=== PATIENT | male | born 1935 | race Caucasian/White ===

== ENCOUNTER 2017-04-09 16:47 | Inpatient (IN) | payer OTHER, MEDICARE ==
[~2017-04-09] VITALS: Ht 160 cm; Wt 77.1 kg
[2017-04-09 16:47] VITALS: BP_SYST 125
[~2017-04-09 16:47] MED LIST: CALC667T5 PO; HUM10VIA3 SUBCUT; NEPH PO; VITD2000 PO
--- NOTE | 2017-04-09 16:47 | NUR ---
Placed in room 01. Placed on hydrotherapist, blood pressure machine and pulse oximeter. To gown for exam. Side rails up. Report given to THOMAS Moody.
--- NOTE | 2017-04-09 16:47 | NUR ---
Dr. Hayes at bedside for evaluation
--- NOTE | 2017-04-09 16:47 | NUR ---
Pt was brought in by ALS, complains of tachycardia today. Per EMS, patient was at dialysis and staff at dialysis center noticed heart rate was increased. EMS, reports staff at dialysis center gave 400 mL of NS and heart rate dropped to 70's, but then increased to 160's. Pt denies chest pain, N/V, or dizziness. Per facility, "this is normal for him, but today we were unable to keep it low." No other injuries/complaints per patient or noted.
--- NOTE | 2017-04-09 16:52 | NUR ---
Juli rojas in ED - 04/09/17 at 1725 by [email or web address] WILLIAM Hayes at bedside examining patient.
[2017-04-09] MEDS ORDERED: NACL 0.9% 1,000 ML IV ONE (17:00)
[2017-04-09] MEDS ORDERED: D5W IV ONE (17:00)
[2017-04-09] MEDS ORDERED: AMIODARONE HCL IV ONE (17:00)
[2017-04-09] MEDS ORDERED: SEN30 PO (17:08)
[2017-04-09] MEDS ORDERED: HYDR-4100 PO (17:08)
[2017-04-09] MEDS ORDERED: AMIODARONE HCL 150 MG/3ML VIAL ONE (17:11)
[2017-04-09 17:23] LABS: BASOPHILS % (AUTO) 0.5 % (0.0-2.0); EOSINOPHILS % (AUTO) 1.1 % (0.0-4.0); HEMATOCRIT 29.6 % (36-54); LYMPHOCYTES % (AUTO) 21.6 % (20.5-51.5); MEAN CORPUSCULAR HEMOGLOBIN 35 pg (27-31); MEAN CORPUSCULAR HGB CONC 34 % (32-36); MEAN CORPUSCULAR VOLUME 103 fL (79.0-98.0); MONOCYTES % (AUTO) 8.6 % (1.7-9.3); NEUTROPHILS # (AUTO) 4.6 K/uL (1.8-7.7); NEUTROPHILS % (AUTO) 68.2 % (40.0-70.0); PLATELET COUNT (AUTO) 292 K/uL (130-430); RED BLOOD CELL COUNT(AUTO) 2.87 MIL/uL (4.2-6.2); RED CELL DISTRIBUTION WIDTH 14.8 % (9.0-15.0); WHITE BLOOD COUNT (AUTO) 6.8 K/uL (4.8-10.8)
[2017-04-09 17:24] LABS: ANION GAP 6 (5-15); CALCIUM 9.8 mg/dL (8.4-11.0); CHLORIDE 102 mmol/L (98-107); CREATININE 2.98 mg/dL (0.55-1.30); EOSINOPHILS # (AUTO) 0.1 K/uL (0.0-0.4); GLUCOSE 180 mg/dL (70-99); LYMPHOCYTES # (AUTO) 1.5 K/uL (1.0-5.5); MONOCYTES # (AUTO) 0.6 K/uL (0.0-1.0); POTASSIUM 3.7 mmol/L (3.5-5.1); SODIUM SERUM 140 mmol/L (136-145); UREA NITROGEN, BLOOD 16 mg/dL (8-21)
[2017-04-09 17:26] LABS: INR 1.1 (0.80-1.20)
[2017-04-09 17:30] LABS: ALANINE AMINOTRANSFERASE 29 U/L (12-78); ALBUMIN 3.1 g/dL (3.4-4.8); ASPARTATE AMINOTRANSFERASE 26 U/L (10-37); TOTAL BILIRUBIN 0.4 mg/dL (0.0-1.0)
[2017-04-09] MEDS ORDERED: DILTIAZEM HCL 25 MG/5 ML VIAL IVP ONE (17:30)
--- NOTE | 2017-04-09 17:39 | NUR ---
Medications were given, pt tolerated well. No adverse reaction, will continue to monitor.
--- NOTE | 2017-04-09 17:45 | NUR ---
Medication was given, heart rate decreased to 87. Pt vital signs are stable, no noted acute distress. Will continue to monitor.
--- NOTE | 2017-04-09 18:33 | NUR ---
Transfer to Telemetry via ACLS protocol. Licensed nurse present. IV present no signs or symptoms of infiltration.
--- NOTE | 2017-04-09 18:33 | NUR ---
Patient will be admitted to care of Dr. Ugarte. Admitted to Telemetry unit. Will go to room 120 A. Belongings list completed. Summary report printed. Report will be given at bedside.
--- NOTE | 2017-04-09 18:38 | NUR ---
ADMISSION NOTE Received patient from ER via jorge alberto, received report from BRODERICK GUZMAN. Patient admitted with diagnosis of SVT. Patient oriented to hospital routine, call light, toileting and safety-patient verbalized understanding. Addendum: 04/09/17 at 1855 by Rafaela Calix RN Alert/oriented x4 denies any chest pain no palpitation , telemetry NSR at 82/min , patient had dinner in ER as verbalized , call light within reach , will endorsed to material handler 2nd shift.
[2017-04-09 18:52] VITALS: BP_SYST 140
--- NOTE | 2017-04-09 19:04 | NUR ---
CONSULTATION CALLED REASON FOR CONSULTATION: SVT WAS CONSULT CALLED: Yes PERSON WHO WAS NOTIFIED: Constanza CONSULTING PHYSICIAN: Dr Chan GRAPHITE GRINDER SPECIALTY: assistant head cashier PHONE NUMBER: ORDERING PHYSICIAN: Dr Ugarte
--- NOTE | 2017-04-09 19:56 | NUR ---
CONSULTATION CALLED REASON FOR CONSULTATION: SVT WAS CONSULT CALLED? Yes PERSON WHO WAS NOTIFIED: Felicia CONSULTING PHYSICIAN: Dr Grullon; Isabel Jara is on-call INSPECTOR HANDBAG FRAMES SPECIALTY: Nephrology INSPECTOR HANDBAG FRAMES PHONE NUMBER: ORDERING PHYSICIAN: Dr Ugarte
--- NOTE | 2017-04-09 20:00 | NUR ---
Opening notes Patient in bed resting. AAOx3 and able to make needs known with clear speech patterns. IV noted to right AC with 20gauge cath. Patient noted with skin tear to right elbow. Skin discoloration noted to both forearms. Denies SOB, chest Pain or distress at this time. Bed in lowest position and call light with patient. Addendum: 04/09/17 at 2108 by Casie Wang RN Bed alarm on.
[2017-04-09] MEDS ORDERED: ACETAMINOPHEN 325 MG TABLET PO PRN (20:15)
[2017-04-09] MEDS ORDERED: ONDANSETRON HCL 4 MG/2 ML VIAL IVP PRN (20:15)
[2017-04-09] MEDS ORDERED: MORPHINE 2 MG/ML INJ. SYRINGE IVP PRN ×2 (20:15)
[2017-04-09] MEDS ORDERED: DEXTROSE 50% JECT 50 ML DISP.SYRIN IVP PRN (20:15)
[2017-04-09] MEDS ORDERED: ZOLPIDEM TARTRATE 5 MG TABLET PO PRN (20:15)
[2017-04-09] MEDS ORDERED: DOCUSATE SODIUM 100 MG CAPSULE PO PRN (20:15)
[2017-04-09] MEDS ORDERED: MUPIROCIN 2% TOPICAL OINTMENT 22 GM NS PRN (20:15)
[2017-04-09] MEDS ORDERED: LORazepam 2 MG/ML VIAL IVP PRN (20:15)
[2017-04-09] MEDS ORDERED: POTASSIUM CHLORIDE 20 MEQ TAB.PRT.SR PO PRN (20:15)
[2017-04-09] MEDS ORDERED: HYDROcodone/ACETAMIN 10-325 MG TAB PO PRN (20:15)
[2017-04-09] MEDS ORDERED: MAGNESIUM SULFATE 50 ML IV PRN (20:15)
[2017-04-09] MEDS: CALCIUM ACETATE 667 MG CAP PO SCH (22:05)
[2017-04-09] MEDS: HEPARIN SODIUM,PORCINE 5000 UNITS/ML VIAL SUBCUT SCH (22:07)
[2017-04-09] MEDS: INSULIN ASPART 100 UNITS/ML, 10 ML VIAL (NovoLOG) SUBCUT PRN (22:14)
--- NOTE | 2017-04-09 22:30 | NUR ---
Medication Patient in bed resting comfortably. No SOB or acute distress noted at this time. Administered medications as ordered and patient tolerated well. Bed in lowest position with bed alarm on and call light with patient. All needs met at this time.
--- NOTE | 2017-04-10 01:30 | NUR ---
Rounds Patient sleeping in bed with no acute distress noted at this time. No SOB or facial grimacing noted. Bed in lowest position and call light with patient.
[2017-04-10 04:00] VITALS: BP_SYST 157
--- NOTE | 2017-04-10 04:40 | NUR ---
Rounds Patient awake and wanting to use the restroom. Assisted patient to dangle legs then patient walked to restroom with unstable gait. Educated patient to use the call light when needing to get up or any other assistance. Patient verbalized understanding. . Bed in lowest position with bed alarm on and call light with patient.
[2017-04-10 06:05] LABS: ANION GAP 4 (5-15); CALCIUM 9.5 mg/dL (8.4-11.0); CHLORIDE 105 mmol/L (98-107); GLUCOSE 102 mg/dL (70-99); POTASSIUM 4.1 mmol/L (3.5-5.1); SODIUM SERUM 140 mmol/L (136-145); UREA NITROGEN, BLOOD 22 mg/dL (8-21)
[2017-04-10 06:08] LABS: BASOPHILS % (AUTO) 0.5 % (0.0-2.0); EOSINOPHILS # (AUTO) 0.1 K/uL (0.0-0.4); EOSINOPHILS % (AUTO) 1.5 % (0.0-4.0); HEMATOCRIT 26.4 % (36-54); HEMOGLOBIN 8.8 g/dL (14.0-18.0); LYMPHOCYTES # (AUTO) 1.2 K/uL (1.0-5.5); LYMPHOCYTES % (AUTO) 18.4 % (20.5-51.5); MEAN CORPUSCULAR HEMOGLOBIN 35 pg (27-31); MEAN CORPUSCULAR HGB CONC 33 % (32-36); MEAN CORPUSCULAR VOLUME 104 fL (79.0-98.0); MONOCYTES # (AUTO) 0.6 K/uL (0.0-1.0); MONOCYTES % (AUTO) 9.3 % (1.7-9.3); NEUTROPHILS # (AUTO) 4.4 K/uL (1.8-7.7); NEUTROPHILS % (AUTO) 70.3 % (40.0-70.0); PLATELET COUNT (AUTO) 240 K/uL (130-430); RED BLOOD CELL COUNT(AUTO) 2.53 MIL/uL (4.2-6.2); RED CELL DISTRIBUTION WIDTH 15.1 % (9.0-15.0); WHITE BLOOD COUNT (AUTO) 6.3 K/uL (4.8-10.8)
[2017-04-10] MEDS: CALCIUM ACETATE 667 MG CAP PO SCH ×3 (06:33→21:31)
--- NOTE | 2017-04-10 06:40 | NUR ---
Blood sugar and closing note Patient in bed resting with no acute distress or SOB noted at this time. Blood sugar was 103 with no coverage needed. Patient tolerated morning medication well. Bed in lowest position and call light with patient. Hourly rounds done throughout the shift and all needs met. Will endorse to day shift patient's plan of care.
--- NOTE | 2017-04-10 08:01 | NUR ---
OPENING NOTE RECEIVED REPORT FROM GROUND HAND RN. PATIENT RECEIVED ASLEEP IN BED. NO S/S OF DISTRESS OR SOB NOTED AT THIS TIME. IV TO RIGHT AC INTACT WITH NO REDNESS OR SIGNS OF INFILTRATION. BED IN LOWEST POSITION, BED ALARM ON, CALL LIGHT IN REACH. WILL CONTINUE TO MONITOR.
[2017-04-10 08:30] VITALS: BP_SYST 146
[2017-04-10] MEDS: CINACALCET HCL 30 MG TABLET PO SCH (09:50)
[2017-04-10] MEDS: HEPARIN SODIUM,PORCINE 5000 UNITS/ML VIAL SUBCUT SCH ×2 (09:52→21:35)
[2017-04-10 11:31] VITALS: BP_SYST 137
--- NOTE | 2017-04-10 13:20 | NUR ---
ROUNDS PATIENT RESTING IN BED IN STABLE CONDITION. NO S/S OF DISTRESS OR SOB NOTED AT THIS TIME. 20G TO RIGHT AC INTACT WITH NO S/S OF INFILTRATION OR INFECTION. SALINE LOCK. BED IN LOWEST POSITION, CALL LIGHT IN REACH, EDUCATED PATIENT TO CALL FOR HELP, BED ALARM ON. WILL CONTINUE TO MONITOR.
[2017-04-10] MEDS ORDERED: METOPROLOL SUCCINATE 25 MG TAB.SR.24H (TOPROL XL) PO ONE (14:30)
[2017-04-10 16:23] VITALS: BP_SYST 155
[2017-04-10] MEDS: INSULIN ASPART 100 UNITS/ML, 10 ML VIAL (NovoLOG) SUBCUT PRN (18:01)
--- NOTE | 2017-04-10 19:19 | NUR ---
CLOSING NOTE PATIENT RESTING IN BED IN STABLE POSITION. NO S/S OF DISTRESS OR SOB NOTED. 20G IV TO RIGHT AC INTACT, SALINE LOCK. BED ALARM ON, BED IN LOWEST POSITION, CALL LIGHT IN REACH. WILL ENDORSE TO ASPHALT PLANT WORKER
[2017-04-10 20:00] VITALS: BP_SYST 155
--- NOTE | 2017-04-10 20:00 | NUR ---
Opening notes Patient in bed resting. No acute distress or SOB noted at this time. Vital signs within normal limits. Patient AAOx3 and able to make needs known. Denies pain at this time. Bed in low position with bed alarm on and call light with patient.
--- NOTE | 2017-04-10 21:40 | NUR ---
Blood sugar Patient's blood sugar is 137 with no coverage needed. Skin warm and dry to touch with no signs of hyperglycemia noted. Patient denies pain at this time. No SOB or acute distress noted. Bed in lowest position with bed alarm on and call light with patient.
--- NOTE | 2017-04-10 23:30 | NUR ---
Rounds Patient in bed sleeping with no acute distress or SOB noted. No facial grimacing noted. Bed in low position with bed alarm on and call light with patient.
[2017-04-11 00:05] VITALS: BP_SYST 117
--- NOTE | 2017-04-11 01:30 | NUR ---
Rounds Patient in bed sleeping with no SOB or acute distress noted at this time. No facial grimacing noted. Bed in low position with bed alarm on and call light with patient.
--- NOTE | 2017-04-11 03:37 | NUR ---
Patient got out of bed Patient got out of bed by himself to use the bedside commode. Bed alarm was on so assistance was given. Patient back in bed in low position with bed alarm on and call light with patient. No acute distress noted at this time.
[2017-04-11 05:00] VITALS: BP_SYST 157
[2017-04-11 05:49] LABS: BASOPHILS % (AUTO) 0.4 % (0.0-2.0); EOSINOPHILS # (AUTO) 0.1 K/uL (0.0-0.4); HEMATOCRIT 27.9 % (36-54); HEMOGLOBIN 8.8 g/dL (14.0-18.0); LYMPHOCYTES # (AUTO) 1.2 K/uL (1.0-5.5); LYMPHOCYTES % (AUTO) 16.3 % (20.5-51.5); MEAN CORPUSCULAR HEMOGLOBIN 33 pg (27-31); MEAN CORPUSCULAR HGB CONC 32 % (32-36); MEAN CORPUSCULAR VOLUME 105 fL (79.0-98.0); MONOCYTES # (AUTO) 0.6 K/uL (0.0-1.0); MONOCYTES % (AUTO) 8.1 % (1.7-9.3); NEUTROPHILS # (AUTO) 5.4 K/uL (1.8-7.7); NEUTROPHILS % (AUTO) 74.2 % (40.0-70.0); PLATELET COUNT (AUTO) 257 K/uL (130-430); RED BLOOD CELL COUNT(AUTO) 2.67 MIL/uL (4.2-6.2); WHITE BLOOD COUNT (AUTO) 7.3 K/uL (4.8-10.8)
[2017-04-11 06:00] LABS: ANION GAP 4 (5-15); CALCIUM 9.6 mg/dL (8.4-11.0); CHLORIDE 104 mmol/L (98-107); CREATININE 6.03 mg/dL (0.55-1.30); GLUCOSE 141 mg/dL (70-99); POTASSIUM 4.4 mmol/L (3.5-5.1); SODIUM SERUM 138 mmol/L (136-145); UREA NITROGEN, BLOOD 31 mg/dL (8-21)
[2017-04-11] MEDS: CALCIUM ACETATE 667 MG CAP PO SCH ×3 (06:31→21:13)
--- NOTE | 2017-04-11 06:45 | NUR ---
Blood sugar and closing notes Patients blood sugar is 116 with no coverage needed. Patient in bed resting with no signs of hypo/hyper glycemia noted. No actue distress or SOB noted. IV to right AC patent and flushed. Will endorse to day shift patient's plan of care.
--- NOTE | 2017-04-11 07:45 | NUR ---
OPENING NOTE RECEIVED REPORT FROM LUMBER SALVAGER RN. PATIENT RECEIVED RESTING IN BED IN STABLE CONDITION. NO S/S OF DISTRESS OR SOB NOTED AT THIS TIME. IV TO RIGHT AC INTACT WITH NO S/S OF INFILTRATION OR INFECTION. PATIENT DENIES PAIN OR DISCOMFORT AT THIS TIME. BED IN LOWEST POSITION, CALL LIGHT IN REACH, BED ALARM ON. WILL CONTINUE TO MONITOR.
[2017-04-11 08:44] VITALS: BP_SYST 165
[2017-04-11] MEDS ORDERED: EPOETIN ALFA 4,000 UNITS/ML VIAL SUBCUT SCH (09:00)
[2017-04-11] MEDS: CINACALCET HCL 30 MG TABLET PO SCH (09:42)
[2017-04-11] MEDS: METOPROLOL SUCCINATE 25 MG TAB.SR.24H (TOPROL XL) PO SCH (09:43)
[2017-04-11] MEDS: HEPARIN SODIUM,PORCINE 5000 UNITS/ML VIAL SUBCUT SCH ×2 (09:49→21:18)
[2017-04-11 11:38] VITALS: BP_SYST 154
[2017-04-11] MEDS: INSULIN ASPART 100 UNITS/ML, 10 ML VIAL (NovoLOG) SUBCUT PRN ×2 (12:08→21:17)
--- NOTE | 2017-04-11 13:18 | NUR ---
04/11/17: RD Assessment Dietitian Recommendations: 1. Continue current diet as tolerated. 2. Encourage PO intakes prn. 3. Appreciate food preferences. Please see Nutrition Assessment for details. Breanne Alvarado RD, [facility]
[2017-04-11 15:01] VITALS: BP_SYST 149
--- NOTE | 2017-04-11 19:55 | NUR ---
INITIAL NOTES RECEIVED PATIENT ON BED AWAKE AND ALERT BREATHING EVEN AND UNLABORED MAINTAINED POSITION OF COMFORT, MAINTAINED SAFETY PRECAUTION, NO PAIN NOTED, VITALS STABLE. EXPLAINED THE PLAN OF CARE AND VERBALIZED UNDERSTANDING WILL CONTINUE TO MONITOR CALL LIGHT WITHIN REACH.
[2017-04-11 20:00] VITALS: BP_SYST 149
--- NOTE | 2017-04-11 20:12 | NUR ---
CLOSING NOTE PATIENT IN BED IN STABLE CONDITION. CURRENTLY ON PHONE WITH . NO S/S OF DISTRESS OR SOB NOTED AT THIS TIME. IV TO RIGHT AC INTACT, NO REDNESS OR INFILTRATION NOTED. REPORT GIVEN TO WILNER CIGARETTE AND FILTER CHIEF INSPECTOR RN. BED IN LOWEST POSITION, BED ALARM ON, CALL LIGHT IN REACH.
--- NOTE | 2017-04-11 22:48 | NUR ---
RN ROUNDS PATIENT ON BED AWAKE AND ALERT, HELPED THE PATIENT TO PREPARE FOR BED, MAINTAINED SAFETY PRECAUTION, MAINTAINED POSITION OF COMFORT NO PAIN NOTED. WILL CONTINUE TO MONITOR CALL LIGHT WITHIN REACH.
--- NOTE | 2017-04-12 00:12 | NUR ---
RN ROUNDS PATIENT ON BED SLEEPING AND RESTING NO PAIN NOTED, BREATHING EVEN AND UNLABORED, MAINTAINED SAFETY, POSITION OF COMFORT. CALL LIGHT WITHIN REACH
[2017-04-12 00:13] VITALS: BP_SYST 142
--- NOTE | 2017-04-12 02:33 | NUR ---
RN ROUNDS PATIENT ON BED SLEEPING AND RESTING BREATHING EVEN AND UNLABORED MAINTAINED SAFETY PRECAUTION CALL LIGHT WITHIN REACH.
--- NOTE | 2017-04-12 04:02 | NUR ---
RN ROUNDS PATIENT ON BED SLEEPING AND RESTING BREATHING EVEN AD UNLABORED. MAINTAINED SAFETY PRECAUTION. CALL LIGHT WITHIN REACH.
--- NOTE | 2017-04-12 06:00 | NUR ---
Closing notes Received report from THOMAS Jose at bedside for continuity of care. Pt asleep, easily arousable. No s/s of distress noted. Blood sugar checked 111. Pt denies any pain at this time. R. arm/elbow skin tear dressings changed. Pt tolerated well. IV saline lock R. AC 22G clear, patent. Call light within reach. To endorse to am nurse.
[2017-04-12] MEDS: CALCIUM ACETATE 667 MG CAP PO SCH (06:06)
[2017-04-12 06:50] LABS: BASOPHILS % (AUTO) 0.5 % (0.0-2.0); EOSINOPHILS # (AUTO) 0.1 K/uL (0.0-0.4); EOSINOPHILS % (AUTO) 1.2 % (0.0-4.0); HEMATOCRIT 26.9 % (36-54); HEMOGLOBIN 8.9 g/dL (14.0-18.0); LYMPHOCYTES # (AUTO) 1.2 K/uL (1.0-5.5); LYMPHOCYTES % (AUTO) 19.9 % (20.5-51.5); MEAN CORPUSCULAR HEMOGLOBIN 35 pg (27-31); MEAN CORPUSCULAR HGB CONC 33 % (32-36); MEAN CORPUSCULAR VOLUME 105 fL (79.0-98.0); MONOCYTES # (AUTO) 0.5 K/uL (0.0-1.0); MONOCYTES % (AUTO) 8.7 % (1.7-9.3); NEUTROPHILS # (AUTO) 4.1 K/uL (1.8-7.7); NEUTROPHILS % (AUTO) 69.7 % (40.0-70.0); PLATELET COUNT (AUTO) 206 K/uL (130-430); RED BLOOD CELL COUNT(AUTO) 2.57 MIL/uL (4.2-6.2); RED CELL DISTRIBUTION WIDTH 14.6 % (9.0-15.0); WHITE BLOOD COUNT (AUTO) 5.9 K/uL (4.8-10.8)
[2017-04-12 06:51] LABS: ANION GAP 7 (5-15); CALCIUM 9.3 mg/dL (8.4-11.0); CHLORIDE 101 mmol/L (98-107); CREATININE 7.59 mg/dL (0.55-1.30); GLUCOSE 110 mg/dL (70-99); POTASSIUM 4.3 mmol/L (3.5-5.1); SODIUM SERUM 134 mmol/L (136-145); UREA NITROGEN, BLOOD 45 mg/dL (8-21)
--- NOTE | 2017-04-12 07:40 | NUR ---
Initial Note Received report from the night nurse Ronna. Pt AOX4. No signs of distress noted at this time. Bed is at lowest position and call light within reach.
[2017-04-12 07:45] VITALS: BP_SYST 155
[2017-04-12] MEDS: CINACALCET HCL 30 MG TABLET PO SCH (08:36)
[2017-04-12] MEDS: METOPROLOL SUCCINATE 25 MG TAB.SR.24H (TOPROL XL) PO SCH (08:37)
[2017-04-12] MEDS: HEPARIN SODIUM,PORCINE 5000 UNITS/ML VIAL SUBCUT SCH (08:40)
--- NOTE | 2017-04-12 09:55 | NUR ---
DISCHARGE PLANNING DC order back to SNF. Faxed SNF referral to [phone]. will follow up on bed assignment. Called [facility] [phone] spoke with Sridevi confirmed patient chair time scheduled 12noon today. Called [facility] [phone] transport not available today. Called [facility] [phone] spoke with Nita bernstein BLS transport poultry picker 11:30am to [facility]. [facility] on will call from [facility] to [facility]. Transportation packet in nurses station. THOMAS Brantley made aware. Patient assigned to room 207A RN to report [phone]. Breanne was made aware patient scheduled for dialysis today at 12noon and ambulance on will call to transport patient from [facility] to [facility].
[2017-04-12 10:43] VITALS: BP_SYST 155
[2017-04-12] MEDS ORDERED: METO25TA3 PO (11:12)
--- NOTE | 2017-04-12 11:30 | NUR ---
Discharge Note Pt has been discharged to SNF as ordered by Dr. Bhatia. Pt is in stable condition at the time of discharge. No signs of distress noted. Transitional care documentation and document pouch given to supervisor alum plant of [facility] ambulance unit 317. IV line removed pressure and gauze applied. No signs of bleeding noted. Pt will be taken to [facility] for dialysis treatment, and after treatment the pt will be taken to [facility] ([facility]).
[2017-04-12 12:27] VITALS: BP_SYST 156
[2017-04-13] MEDS ORDERED: EPOETIN ALFA 4,000 UNITS/ML VIAL SUBCUT SCH (18:00)
== END 2017-04-12 11:50 | DRG 308 ==
LOC: SED 16:47 → STU 18:19
PROVIDERS: ADMIT General Practice; ATTEND General Practice
PROC: 5A1D70Z Performance of Urinary Filtration, Intermittent, Less than 6 Hours Per Day (ICD-10-PCS; principal; 2017-04-11)
DX: I47.1 Supraventricular tachycardia (principal); N17.0 Acute kidney failure with tubular necrosis; E87.2 Acidosis; N18.6 End stage renal disease; I12.0 Hypertensive chronic kidney disease with stage 5 chronic kidney disease or end stage renal disease; N25.81 Secondary hyperparathyroidism of renal origin; E11.22 Type 2 diabetes mellitus with diabetic chronic kidney disease; D63.8 Anemia in other chronic diseases classified elsewhere; I49.9 Cardiac arrhythmia, unspecified; Z99.2 Dependence on renal dialysis
CPT/HCPCS: 36415; 71045; 80048; 80053; 82962; 83605; 83735-TC; 84443-TC; 84484; 85025; 85610-TC; 85730-TC; 87040-TC; 87081; 93005; 93306; 96361; 96374; 96375; 99291; J0282; J1644; J1815; J3490; J7030; J7060

== ENCOUNTER 2017-04-21 14:41 | Emergency (ER) | payer OTHER, MEDICARE ==
[~2017-04-21] VITALS: Ht 160 cm; Wt 75.3 kg
[~2017-04-21 14:41] MED LIST changes: +HYDR-4100 PO; +METO25TA3 PO; +SEN30 PO
[2017-04-21 14:49] VITALS: BP_SYST 148
[2017-04-21 16:10] LABS: BASOPHILS % (AUTO) 0.6 % (0.0-2.0); EOSINOPHILS # (AUTO) 0.1 K/uL (0.0-0.4); EOSINOPHILS % (AUTO) 1.6 % (0.0-4.0); HEMATOCRIT 25.9 % (36-54); HEMOGLOBIN 8.6 g/dL (14.0-18.0); LYMPHOCYTES % (AUTO) 20.8 % (20.5-51.5); MEAN CORPUSCULAR HEMOGLOBIN 34 pg (27-31); MEAN CORPUSCULAR HGB CONC 33 % (32-36); MEAN CORPUSCULAR VOLUME 102 fL (79.0-98.0); MONOCYTES # (AUTO) 0.5 K/uL (0.0-1.0); MONOCYTES % (AUTO) 10.4 % (1.7-9.3); NEUTROPHILS # (AUTO) 3.4 K/uL (1.8-7.7); NEUTROPHILS % (AUTO) 66.6 % (40.0-70.0); PLATELET COUNT (AUTO) 197 K/uL (130-430); RED BLOOD CELL COUNT(AUTO) 2.53 MIL/uL (4.2-6.2); RED CELL DISTRIBUTION WIDTH 14.4 % (9.0-15.0)
[2017-04-21 16:21] LABS: ANION GAP 5 (5-15); CALCIUM 8.4 mg/dL (8.4-11.0); CHLORIDE 100 mmol/L (98-107); CREATININE 4.43 mg/dL (0.55-1.30); GLUCOSE 271 mg/dL (70-99); POTASSIUM 3.7 mmol/L (3.5-5.1); SODIUM SERUM 136 mmol/L (136-145); UREA NITROGEN, BLOOD 30 mg/dL (8-21)
[2017-04-21 16:25] LABS: ALANINE AMINOTRANSFERASE 35 U/L (12-78); ALBUMIN 2.7 g/dL (3.4-4.8); ASPARTATE AMINOTRANSFERASE 27 U/L (10-37); LIPASE 326 U/L (73-393); TOTAL BILIRUBIN 0.4 mg/dL (0.0-1.0)
[2017-04-21 19:15] VITALS: BP_SYST 154
== END 2017-04-21 19:15 | disposition home or self-care (01) ==
LOC: SED 14:41
DX: R00.2 Palpitations (principal); I12.0 Hypertensive chronic kidney disease with stage 5 chronic kidney disease or end stage renal disease; E11.22 Type 2 diabetes mellitus with diabetic chronic kidney disease; N18.6 End stage renal disease; Z99.2 Dependence on renal dialysis; Z79.899 Other long term (current) drug therapy
CPT/HCPCS: 36415; 71045; 80053; 83690-TC; 83880; 84484; 85025; 93005; 99285

== ENCOUNTER 2017-05-17 13:22 | Emergency (ER) | payer OTHER, MEDICARE ==
[~2017-05-17] VITALS: Ht 160 cm; Wt 75.7 kg
[2017-05-17 13:26] VITALS: BP_SYST 133
[2017-05-17] MEDS ORDERED: NS 500 ML IV ONE (13:45)
[2017-05-17] MEDS ORDERED: ASPIRIN 81 MG TAB.CHEW PO ONE (13:45)
[2017-05-17] MEDS ORDERED: ASPIRIN 81 MG TAB.CHEW ONE (14:12)
[2017-05-17 14:19] LABS: BASOPHILS % (AUTO) 0.7 % (0.0-2.0); EOSINOPHILS # (AUTO) 0.1 K/uL (0.0-0.4); EOSINOPHILS % (AUTO) 1.9 % (0.0-4.0); HEMOGLOBIN 10.9 g/dL (14.0-18.0); INR 1.1 (0.80-1.20); LYMPHOCYTES # (AUTO) 1.5 K/uL (1.0-5.5); LYMPHOCYTES % (AUTO) 24.3 % (20.5-51.5); MEAN CORPUSCULAR HEMOGLOBIN 34 pg (27-31); MEAN CORPUSCULAR HGB CONC 32 % (32-36); MEAN CORPUSCULAR VOLUME 106 fL (79.0-98.0); MONOCYTES # (AUTO) 0.5 K/uL (0.0-1.0); MONOCYTES % (AUTO) 8.7 % (1.7-9.3); NEUTROPHILS % (AUTO) 64.4 % (40.0-70.0); PLATELET COUNT (AUTO) 243 K/uL (130-430); PROTHROMBIN TIME 11.3 SECS (9.5-12.5); RED CELL DISTRIBUTION WIDTH 18.5 % (9.0-15.0); WHITE BLOOD COUNT (AUTO) 6.1 K/uL (4.8-10.8)
[2017-05-17 14:21] LABS: ANION GAP 9 (5-15); CALCIUM 8.7 mg/dL (8.4-11.0); CHLORIDE 98 mmol/L (98-107); CREATININE 5.96 mg/dL (0.55-1.30); GLUCOSE 194 mg/dL (70-99); SODIUM SERUM 136 mmol/L (136-145); UREA NITROGEN, BLOOD 34 mg/dL (8-21)
[2017-05-17 14:26] LABS: ALANINE AMINOTRANSFERASE 29 U/L (12-78); ALBUMIN 3.2 g/dL (3.4-4.8); ASPARTATE AMINOTRANSFERASE 28 U/L (10-37); TOTAL BILIRUBIN 0.5 mg/dL (0.0-1.0)
[2017-05-17] MEDS ORDERED: METOPROLOL TARTRATE 25 MG TABLET PO ONE (14:30)
[2017-05-17 16:45] VITALS: BP_SYST 132
== END 2017-05-17 16:45 | disposition home or self-care (01) ==
LOC: SED 13:22
DX: R00.0 Tachycardia, unspecified (principal); I10 Essential (primary) hypertension; E11.9 Type 2 diabetes mellitus without complications; Z99.2 Dependence on renal dialysis; Z79.4 Long term (current) use of insulin; Z85.51 Personal history of malignant neoplasm of bladder; Z79.899 Other long term (current) drug therapy
CPT/HCPCS: 36415; 71045; 80053; 82550; 83880; 84484; 85025; 85610; 85730; 93005; 96360; 99285; J7040

== ENCOUNTER 2018-04-28 10:19 | Inpatient (IN) | payer OTHER, MEDICARE ==
[~2018-04-28] VITALS: Ht 160 cm; Wt 76.7 kg
[2018-04-28 10:23] VITALS: BP_SYST 96
--- NOTE | 2018-04-28 10:29 | NUR ---
Placed in room 07 . Placed on cardiac rn, blood pressure machine and pulse oximeter. To gown for exam. Side rails up.
--- NOTE | 2018-04-28 10:44 | NUR ---
Medicated for low blood sugar per MD orders. at bedside.
[2018-04-28] MEDS ORDERED: DEXTROSE 50% JECT 50 ML DISP.SYRIN IVP ONE (10:45)
[2018-04-28] MEDS ORDERED: DEXTROSE 50% JECT 50 ML DISP.SYRIN ONE (10:48)
[2018-04-28] MEDS ORDERED: GLIP5TAB26 PO (10:50)
[2018-04-28] MEDS ORDERED: APIX2.5T PO (10:50)
[2018-04-28] MEDS ORDERED: TRAM-350 PO (10:50)
[2018-04-28] MEDS ORDERED: ASPI-1153 PO (10:50)
[2018-04-28] MEDS ORDERED: AMI200 PO (10:50)
[2018-04-28] MEDS ORDERED: LIP40 PO (10:50)
--- NOTE | 2018-04-28 10:51 | NUR ---
Phleb here for blood draw using 2 pt identifiers.
--- NOTE | 2018-04-28 10:57 | NUR ---
ASSISTED PT FROM [facility]IA W/C, BRINGS IN PT [facility] CALLED THEM AND INFORMED THEM TO COME TO ER BECAUSE HIS H/H WERE LOW. PT WITH MODERATE ASSIST TO BED, PALE LOOKING, SOB WITH MINIMAL EXERTION. BRUISES NOTED TO LEFT ANTERIOR CHEST WALL, RIGHT ARM, LEFT SHOULDER, PER , HE'S BEEN REFUSING TO USE WALKER AND HAS BEEN FALLING A LOT RECENTLY. PT AAOX4, DENIES ANY PAIN. RESP EVEN AND UNLABORED, ON RA @98%, DENIES ANY CP AT THIS TIME. SKIN W/D/I. IV SL INSERTED TO RT FS, PT HYPOGLYCEMIC, ER MD INFORMED. MEDICATED WITH 1 AMP ORDERED. PER , HE HAD BREAKFAST THIS AM. PT WITH AN EXTENSIVE MED HISTORY, HAD DIALYSIS YESTERDAY AND WENT WELL, SHUNT TO LEFT FA NOTED, +BRUIT/THRILL. SAFETY PRECUATIONS IN PLACE, WILL CONT TO MONITOR CLOSELY.
--- NOTE | 2018-04-28 11:00 | NUR ---
ER Dr. Ely at bedside examining patient.
--- NOTE | 2018-04-28 11:17 | NUR ---
NO ACUTE CHANGES IN CONDITION, PT WITH EYES CLOSED, EASILY AROUSABLE, RE CHECK BLOOD GLUCOSE 221MG/DL. DR PARIS INFORMED. WILL CONT TO MONITOR.
[2018-04-28 11:25] LABS: RED BLOOD CELL COUNT(AUTO) 1.88 MIL/uL (4.2-6.2); WHITE BLOOD COUNT (AUTO) 4.4 K/uL (4.8-10.8)
[2018-04-28 11:26] LABS: HEMATOCRIT 21.2 % (36-54); HEMOGLOBIN 6.7 g/dL (14.0-18.0)
[2018-04-28 11:27] LABS: BASOPHILS # (AUTO) 0.1 K/uL (0.0-0.2); BASOPHILS % (AUTO) 1.5 % (0.0-2.0); LYMPHOCYTES # (AUTO) 0.7 K/uL (1.0-5.5); LYMPHOCYTES % (AUTO) 16.1 % (20.5-51.5); MEAN CORPUSCULAR HEMOGLOBIN 36 pg (27-31); MEAN CORPUSCULAR HGB CONC 32 % (32-36); MEAN CORPUSCULAR VOLUME 113 fL (79.0-98.0); MONOCYTES # (AUTO) 0.5 K/uL (0.0-1.0); MONOCYTES % (AUTO) 11.4 % (1.7-9.3); NEUTROPHILS # (AUTO) 3.1 K/uL (1.8-7.7); PLATELET COUNT (AUTO) 172 K/uL (130-430); RED CELL DISTRIBUTION WIDTH 25.9 % (9.0-15.0)
[2018-04-28 11:32] LABS: ANION GAP 4 (5-15); CHLORIDE 101 mmol/L (98-107); CREATININE 4.44 mg/dL (0.55-1.30); GLUCOSE 256 mg/dL (70-99); POTASSIUM 5.6 mmol/L (3.5-5.1); SODIUM SERUM 135 mmol/L (136-145); UREA NITROGEN, BLOOD 51 mg/dL (8-21)
[2018-04-28 11:37] LABS: ALANINE AMINOTRANSFERASE 28 U/L (12-78); ALBUMIN 2.3 g/dL (3.4-4.8); ASPARTATE AMINOTRANSFERASE 37 U/L (10-37); TOTAL BILIRUBIN 0.8 mg/dL (0.0-1.0)
[2018-04-28 11:48] LABS: INR 1.5 (0.80-1.20); PROTHROMBIN TIME 14.9 SECS (9.5-12.5)
--- NOTE | 2018-04-28 12:20 | NUR ---
PT SITTING UP IN BED, EATING LUNCH, AT BEDSIDE. TOLERATING WEL. LORIITBEBO FOR ADMISSION BED.
[2018-04-28] MEDS ORDERED: SODIUM POLYSTYRENE SULFONATE 15 GM/60 ML UDBTL PO ONE (12:30)
[2018-04-28] MEDS ORDERED: SODIUM POLYSTYRENE SULFONATE 15 GM/60 ML UDBTL ONE ×2 (12:45→12:48)
--- NOTE | 2018-04-28 12:53 | NUR ---
Admission Note Received patient from ER with diagnosis of Severe Anemia, Hypoglycemia,ESRD. Initial Plan of Care discussed-patient verbalized his understanding. Oriented to room, call light, pain management and safety. Call light within reach.
--- NOTE | 2018-04-28 13:09 | NUR ---
CONSULTATION PAGED/CALLED Reason for Consultation: [] SEVERE ANEMIA, HYPOGLYCEMIA Person Who was Notified: [] CAIO Consulting Physician: [] DR Elizabeth GUILLAUME PSYCHOTHERAPIST COUNSELOR FOR DR Carlos KAM Numerical Analysis Group Manager Specialty: [] NEPHROLOGY Ordering Physician: [] DR BOWLING
[2018-04-28 13:30] VITALS: BP_SYST 125
--- NOTE | 2018-04-28 14:00 | NUR ---
Patient will be admitted to care of DR ROQUE. Admitted to unit. Will go to room . Belongings list completed. Summary report printed. Report will be given at bedside.
--- NOTE | 2018-04-28 16:25 | NUR ---
ROUNDS/SKIN Pt resting quietly in room with no s/s resp distress, no c/o pain or discomfort. Photos taken of pt's multiple bruises and small scabs-pt states he falls sometimes-"I don't always use the walker". Noted pt had on diaper brief-pt educated on the benfits of not using diapers for his skin-pt verbalized his understanding and still insisted on using his depends. Pt's wound to LFA cleansed with normal saline, hydrogel to wound bed, covered with foam dressing and secured in place with kerlex wrap. Pt tolerated well. Pt c/o feeling cold-given warm blanket. Needs met, Call light within reach.
--- NOTE | 2018-04-28 17:35 | NUR ---
BLOOD TRANSFUSION STARTED Consent signed per Dr. Live agreeing to administration of blood. Blood has been type and crossmatched. Blood sent from blood bank. Information on unit of blood checked against patient wristband at bedside by two nurses. All information matches. Patient or responsible green party informed of potential complications associated with blood transfusion. Informed of possible transfusion reaction symptoms. Aware of need to notify nurse at once of itching, shortness of breath, flushing, feeling of impending doom, or other symptoms not previously present. Vital signs taken within 5 minutes prior to initiation of transfusion, pt afebrile. RN remained with the patient for first 15 minutes of transfusion at which time vital signs were re-assessed and stable, pt afebrile. Call light within reach.
--- NOTE | 2018-04-28 17:49 | NUR ---
LOW BLOOD SUGAR Pt's Glucose 52 mg/dl, pt asymptomatic, pt sitting up up starting to eat his dinner. Pt given 4oz juice and his fruit. Will recheck blood sugar in 15 minutes.
--- NOTE | 2018-04-28 17:57 | NUR ---
MD INFORMED Dr. Live here and informed of low blood sugar, stated to keep fingersticks at Q 2hr, stated she will put sliding scale to start at 220 mg/dl.
[2018-04-28] MEDS ORDERED: D10W 1,000 ML IV SCH (18:00)
--- NOTE | 2018-04-28 19:20 | NUR ---
CLOSING NOTE Pt resting quietly in bed with no s/s resp distress, no c/o pain or discomfort. Blood transfusion infusing well to RFA at 100 ml/hr, no s/s adverse side effects to blood transfusion noted at this time. Endorsed to spring upholsterer RN. Needs met, call light within reach.
--- NOTE | 2018-04-28 19:36 | NUR ---
Opening notes Received report. Patient is resting comfortably in bed. No signs of distress noted. Breathing is even and unlabored. Blood transfusion currently running through IV. No signs of allergic reaction noted. No needs at this time. Call light with the patient. Safety precautions in place.
[2018-04-28 20:00] VITALS: BP_SYST 115
--- NOTE | 2018-04-28 20:45 | NUR ---
END BLOOD TRANSFUSION Patient tolerated well. No signs of allergic reaction noted. Vital signs T 97.4 P81 R18 BP 115/61 O2 sat 100%. Will initiate ordered fluids.
--- NOTE | 2018-04-28 20:59 | NUR ---
Consultation Paged Reason for Consultation: Persistent Hypoglycemia Person Who was Notified: Kolton Consulting Physician: Dr Mo Drum Printer Drum Printer Specialty: Endocrinology Ordering Physician: Dr Live
--- NOTE | 2018-04-28 21:30 | NUR ---
Bowel Movement Patient ambulated to bathroom using walker. Patient had a large amount of soft, brown stool. Hygiene care provided at this time. Patient wants to use diaper. Educated the patient benefits of not using a diaper to protect the skin. Patient verbalized understanding, but still wants to use diaper. Provided the patient with daniel crackers and apple juice per patient request. No other needs at this time. Call light with the patient. Safety precautions in place.
[2018-04-28 22:26] LABS: ANION GAP 4 (5-15); CHLORIDE 103 mmol/L (98-107); CREATININE 4.94 mg/dL (0.55-1.30); GLUCOSE 114 mg/dL (70-99); POTASSIUM 5.1 mmol/L (3.5-5.1); SODIUM SERUM 138 mmol/L (136-145); UREA NITROGEN, BLOOD 54 mg/dL (8-21)
--- NOTE | 2018-04-28 23:30 | NUR ---
TV Patient in bed, watching TV. No signs of distress noted. Breathing is even and unlabored. IV is patent and intact infusing fluids. No needs at this time. Call light with the patient. Safety precautions in place.
[2018-04-29 00:42] VITALS: BP_SYST 118
--- NOTE | 2018-04-29 01:00 | NUR ---
Resting Patient resting comfortably in bed. No signs of distress noted. Breathing is even and unlabored. IV is patent and intact. No needs at this time. Call light with the patient. Safety precautions in place.
--- NOTE | 2018-04-29 05:16 | NUR ---
Sleeping Patient intermittently sleeps. Provided patient with snacks and juice. Patient ambulated to bathroom using walker and had a bowel movement. Hygiene care provided. Patient resting comfortably in bed. No signs of distress noted. Call light with the patient. Safety precautions in place.
--- NOTE | 2018-04-29 06:26 | NUR ---
Closing notes Patient sleeping in bed. No signs of distress noted. Breathing is even and unlabored. Accucheck 146. IV is patent and intact, infusing fluids. All needs met throughout the shift. Call light with the patient. Safety precautions in place. Will endorse care to day shift RN.
[2018-04-29 07:26] LABS: ALANINE AMINOTRANSFERASE 25 U/L (12-78); ALBUMIN 2.4 g/dL (3.4-4.8); ANION GAP 5 (5-15); ASPARTATE AMINOTRANSFERASE 25 U/L (10-37); CALCIUM 7.8 mg/dL (8.4-11.0); CHLORIDE 98 mmol/L (98-107); CREATININE 5.16 mg/dL (0.55-1.30); GLUCOSE 164 mg/dL (70-99); POTASSIUM 5.2 mmol/L (3.5-5.1); SODIUM SERUM 134 mmol/L (136-145); THYROID STIMULATING HORMONE 1.41 uIu/mL (0.34-4.82); TOTAL BILIRUBIN 0.8 mg/dL (0.0-1.0); UREA NITROGEN, BLOOD 57 mg/dL (8-21)
[2018-04-29 07:56] VITALS: BP_SYST 117
[2018-04-29 07:59] LABS: HEMATOCRIT 22.9 % (36-54); HEMOGLOBIN 7.4 g/dL (14.0-18.0); RED BLOOD CELL COUNT(AUTO) 2.13 MIL/uL (4.2-6.2); WHITE BLOOD COUNT (AUTO) 4.7 K/uL (4.8-10.8)
[2018-04-29 08:00] LABS: MEAN CORPUSCULAR HEMOGLOBIN 35 pg (27-31); MEAN CORPUSCULAR HGB CONC 32 % (32-36); MEAN CORPUSCULAR VOLUME 107 fL (79.0-98.0); NEUTROPHILS % (AUTO) 65.2 % (40.0-70.0); PLATELET COUNT (AUTO) 159 K/uL (130-430); RED CELL DISTRIBUTION WIDTH 26.4 % (9.0-15.0)
--- NOTE | 2018-04-29 08:00 | NUR ---
AM NOTES SITTING AT THE EDGE OF THE BED,ALERT AND ORIENTED. WAITING FOR HER BREAKFAST. DENIES ANY CHEST PAIN OR SHORTNESS OF BREATH. ON ROOM AIR TOLERATED WELL. IV FLUID OF D10W INFUSING WELL. HAS LEFT ARM SHUNT. AMBULATE WITH WALKER. SAFETY PRECAUTION OBSERVED. CALL LIGHT WITHIN REACH. ENC. TO CALL FOR HELP NEEDED. WILL MONITOR.
[2018-04-29 08:01] LABS: BASOPHILS # (AUTO) 0.1 K/uL (0.0-0.2); BASOPHILS % (AUTO) 1.3 % (0.0-2.0); EOSINOPHILS # (AUTO) 0.1 K/uL (0.0-0.4); EOSINOPHILS % (AUTO) 1.5 % (0.0-4.0); LYMPHOCYTES # (AUTO) 0.9 K/uL (1.0-5.5); MONOCYTES # (AUTO) 0.6 K/uL (0.0-1.0); NEUTROPHILS # (AUTO) 3.1 K/uL (1.8-7.7)
[2018-04-29] MEDS ORDERED: ACETAMINOPHEN 325 MG TABLET PO PRN (08:30)
--- NOTE | 2018-04-29 09:26 | NUR ---
notes- In bed, denies pain, feels a little short of breath. O2 sat is 100% in Room air. Dialysis at bedside to start dialysis.
--- NOTE | 2018-04-29 09:29 | NUR ---
Nutrition update Zaid Scale 18 noted Pt admitted for Severe Anemia, Hypoglycemia, ESRD Diet: [facility] Renal BMI: 29 RD to follow per nutrition care standards.
--- NOTE | 2018-04-29 10:17 | NUR ---
Notes Patient eat all his breakfast. On dialysis at this time. 1 unit of PRBC given to dialysis nurse to transfuse as ordered.
[2018-04-29 12:50] VITALS: BP_SYST 106
--- NOTE | 2018-04-29 13:43 | NUR ---
Notes- dialysis done with 2.1 l out. Patient is eating at this time. Family at bedside. no acute distress noted. Will monitor.
[2018-04-29] MEDS: ATORVASTATIN 20 MG TABLET PO SCH (13:49)
[2018-04-29] MEDS: METOPROLOL SUCCINATE 25 MG TAB.SR.24H (TOPROL XL) PO SCH (13:49)
[2018-04-29] MEDS: ASPIRIN 81 MG TABLET(ECOTRIN) PO SCH (13:49)
[2018-04-29] MEDS: FAMOTIDINE 20 MG TABLET PO SCH (13:51)
[2018-04-29] MEDS: APIXABAN 2.5 MG TABLET PO SCH ×2 (13:51→21:43)
[2018-04-29] MEDS: AMIODARONE HCL 200 MG TABLET PO SCH (13:52)
--- NOTE | 2018-04-29 14:20 | NUR ---
MADE A F/U CALL TO DR Dimitrios GARCIA, RE: CONSULT FOR PERSISTENT HYPOGLYCEMIA. SPOKE TO EMPERATRIZ/
--- NOTE | 2018-04-29 14:30 | NUR ---
Discharge Planning: QUALITY ASSURANCE LEAD went to speak with pt at bedside; pt sleeping. QUALITY ASSURANCE LEAD called pt's ([phone]) and left a message. Pt has order for DC planning to SNF. CM department will follow up with pt/pt's family to discuss DC planning to SNF.
--- NOTE | 2018-04-29 14:30 | NUR ---
LABS INFORMED LAB TO ADD IRON, FERRITIN TO YESTERDAY'S LAB AND NOT TO DRAW BLOOD TODAY SINCE PATIENT ALREADY HAD 2 UNIT OF PRBC
[2018-04-29] MEDS ORDERED: D5/0.45 NS 1,000 ML IV SCH (14:45)
--- NOTE | 2018-04-29 15:00 | NUR ---
ROUNDS SEEN BY DR. GARCIA AT BEDSIDE
--- NOTE | 2018-04-29 15:28 | NUR ---
CONSULTATION PAGED/CALLED Reason for Consultation: [] ANEMIA, COLON CA Person Who was Notified: [] ISHAN Consulting Physician: [] DR VILLASEÑOR [employer] Learning Support Teacher Specialty: [] GI Ordering Physician: [] DR Celina BOWLING
[2018-04-29 15:45] LABS: TOTAL IRON BIND. CAPACITY 190 ug/dL (250-450)
--- NOTE | 2018-04-29 15:51 | NUR ---
Discharge Planning: DISCIPLINARY HEARING OFFICER spoke with pt's , Linda ([phone]); Linda is agreeable to SNF placement for pt. Linda states that pt has been to SNF before but couldn't remember the name; pt's states that she would like something close to [place]. DISCIPLINARY HEARING OFFICER went over SNF list with pt's ; her first choice is- [facility], second choice-[facility], third choice-[facility]. DISCIPLINARY HEARING OFFICER has completed Patient Choice of Vendor Form. DISCIPLINARY HEARING OFFICER will fax referral to [facility]; pt has not had PT evaluation yet. [facility] will endorse follow up to weekend . Addendum: 04/29/18 at 1608 by Michelle Lai LCSW [facility] (p. [phone] f.[phone]); referral has been sent to [facility].
[2018-04-29 16:10] VITALS: BP_SYST 127
--- NOTE | 2018-04-29 18:46 | NUR ---
CLOSING NOTES IN BED, WATCHING TV. DENIES ANY PAIN OR DISCOMFORT. AMBULATE WITH FWW WITH MODERATE ASSISTANCE. RE INFORMED PATIENT THAT WE STILL NEED TO COLLECT URINE AND STOOL. PER PATIENT HE STILL URINATE JUST A LITTLE BIT AND NOT THAT MUCH. NO DISTRESS NOTED. NEEDS ATTENDED. WILL ENDORSE.
[2018-04-29 19:51] VITALS: BP_SYST 132
--- NOTE | 2018-04-29 19:51 | NUR ---
INITIAL NOTE AT INITIAL ASSESSMENT, PATIENT IS RESTING IN BED, STABLE, NO SIGNS OF RESPIRATORY DISTRESS. PATIENT VERBALIZES NO PAIN. PLAN OF CARE IS COMMUNICATED WITH THE PATIENT. CALL LIGHT- TEACH BACK IS SUCCESSFUL. BED IS LOCKED, ALARMED, AND AT THE LOWEST LEVEL. FALL AND SAFETY PRECAUTIONS WILL BE IN PLACE THROUGHOUT THE SHIFT.
--- NOTE | 2018-04-29 21:48 | NUR ---
NOTE SCHEDULED MEDICATIONS ARE GIVEN TO PATIENT AT THIS TIME. PATIENT IS RESTING IN BED, STABLE, NO SIGNS OF RESPIRATORY DISTRESS. CALL LIGHT WITHIN REACH. BED IS LOCKED, ALARMED, AND AT THE LOWEST LEVEL.
--- NOTE | 2018-04-29 21:57 | NUR ---
PAGED PAGED SCOTTIE HARVEY AT [phone] SPOKE WITH ENRICO.
--- NOTE | 2018-04-29 22:41 | NUR ---
2ND PAGE OUT TO SCOTTIE ISRAEL AT [phone] SPOKE WITH ENRICO.
--- NOTE | 2018-04-29 23:03 | NUR ---
3RD PAGE OUT TO SCOTTIE ISRAEL AT [phone] SPOKE WITH ENRICO.
--- NOTE | 2018-04-29 23:12 | NUR ---
COMMUNICATION WITH DR. RODNEY STEVENS HAS CALLED BACK AT THIS TIME, IT WAS COMMUNICATED THAT THE PATIENT HAS A BLOOD SUGAR OF 152 AND NO SSI. VERBALIZED THAT NO COVERAGE WILL BE NECESSARY FOR THIS PATIENT. HAS ALSO REQUESTED TO D/C PATIENT'S IVF BECAUSE HE IS NO LONGER HYPOGLYCEMIC.
[2018-04-29 23:41] VITALS: BP_SYST 119
--- NOTE | 2018-04-30 01:10 | NUR ---
NEW IV PATIENT ACCIDENTALLY PULLED OUT HIS IV DURING HIS SLEEP. TIP OF CATHETER IS FOUND INTACT, NO SIGNS OF ACTIVE BLEED. NEW IV IS PLACED ON RIGHT FOREARM, 24 GAUGE. 10 MLS NS FLUSHED WITH NO RESISTANCE. PATIENT TOLERATED WELL.
--- NOTE | 2018-04-30 03:08 | NUR ---
HYGIENE CARE PATIENT PROVIDED WITH HYGIENE CARE AND FRESH LINENS BY JEFF GAINES AT THIS TIME. HE IS REPOSITIONED INTO BED FOR COMFORT. HE IS STABLE, NO SIGNS OF RESPIRATORY DISTRESS. CALL LIGHT WITHIN REACH. BED IS LOCKED, ALARMED, AND AT THE LOWEST LEVEL.
--- NOTE | 2018-04-30 04:05 | NUR ---
NOTE PATIENT IS SLEEPING, STABLE, NO SIGNS OF RESPIRATORY DISTRESS. CALL LIGHT WITHIN REACH. BED IS LOCKED, ALARMED, AND AT THE LOWEST LEVEL.
--- NOTE | 2018-04-30 05:29 | NUR ---
NOTE PATIENT IS SLEEPING, STABLE, NO SIGNS OF RESPIRATORY DISTRESS. CALL LIGHT WITHIN REACH. BED IS LOCKED, ALARMED, AND AT THE LOWEST LEVEL.
--- NOTE | 2018-04-30 06:48 | NUR ---
CLOSING NOTE BLOOD SUGAR CHECK AT THIS TIME IS WNL. PATIENT IS RESTING IN BED, STABLE, NO SIGNS OF RESPIRATORY DISTRESS. PATIENT VERBALIZES NO PAIN AT THIS TIME. CALL LIGHT WITHIN REACH. BED IS LOCKED, ALARMED, AND AT THE LOWEST LEVEL. FALL AND SAFETY PRECAUTIONS HAVE BEEN IN PLACE THROUGHOUT THE SHIFT. WILL CONTINUE TO MONITOR UNTIL SHIFT REPORT IS GIVEN AT BEDSIDE TO AM NURSE.
[2018-04-30 06:59] LABS: ANION GAP 8 (5-15); CALCIUM 7.7 mg/dL (8.4-11.0); CHLORIDE 100 mmol/L (98-107); CREATININE 4.21 mg/dL (0.55-1.30); GLUCOSE 99 mg/dL (70-99); POTASSIUM 4.9 mmol/L (3.5-5.1); SODIUM SERUM 137 mmol/L (136-145); UREA NITROGEN, BLOOD 39 mg/dL (8-21)
[2018-04-30 07:11] LABS: ALANINE AMINOTRANSFERASE 25 U/L (12-78); ALBUMIN 2.5 g/dL (3.4-4.8); ASPARTATE AMINOTRANSFERASE 27 U/L (10-37); TOTAL BILIRUBIN 0.9 mg/dL (0.0-1.0)
[2018-04-30 07:14] LABS: HEMATOCRIT 25.7 % (36-54); HEMOGLOBIN 8.4 g/dL (14.0-18.0); MEAN CORPUSCULAR HEMOGLOBIN 34 pg (27-31); MEAN CORPUSCULAR HGB CONC 33 % (32-36); MEAN CORPUSCULAR VOLUME 105 fL (79.0-98.0); NEUTROPHILS % (AUTO) 69.7 % (40.0-70.0); PLATELET COUNT (AUTO) 167 K/uL (130-430); RED BLOOD CELL COUNT(AUTO) 2.45 MIL/uL (4.2-6.2); RED CELL DISTRIBUTION WIDTH 25.9 % (9.0-15.0)
[2018-04-30 07:15] LABS: BASOPHILS # (AUTO) 0.1 K/uL (0.0-0.2); BASOPHILS % (AUTO) 1.1 % (0.0-2.0); EOSINOPHILS # (AUTO) 0.1 K/uL (0.0-0.4); LYMPHOCYTES # (AUTO) 0.9 K/uL (1.0-5.5); MONOCYTES # (AUTO) 0.6 K/uL (0.0-1.0); MONOCYTES % (AUTO) 11.2 % (1.7-9.3); NEUTROPHILS # (AUTO) 3.5 K/uL (1.8-7.7)
--- NOTE | 2018-04-30 07:45 | NUR ---
OPENING NOTE PT AWAKE LAYING IN BED, NO DISTRESS NOTED, PT REORIENTED TO MARTINE LIGHT USE VISIBLY WITHIN REACH, BED ALARM IN PLACE WITH BED IN THE LOWEST POSITION.
[2018-04-30 08:03] VITALS: BP_SYST 139
[2018-04-30 08:06] LABS: FOLATE (FOLIC ACID) >20.0 ng/mL (>3.0)
[2018-04-30] MEDS: ATORVASTATIN 20 MG TABLET PO SCH (08:13)
[2018-04-30] MEDS: FAMOTIDINE 20 MG TABLET PO SCH (08:13)
[2018-04-30] MEDS: ASPIRIN 81 MG TABLET(ECOTRIN) PO SCH (08:13)
[2018-04-30] MEDS: AMIODARONE HCL 200 MG TABLET PO SCH (08:14)
[2018-04-30] MEDS: METOPROLOL SUCCINATE 25 MG TAB.SR.24H (TOPROL XL) PO SCH (08:15)
[2018-04-30] MEDS: APIXABAN 2.5 MG TABLET PO SCH ×2 (08:19→20:19)
--- NOTE | 2018-04-30 08:24 | NUR ---
am meds morning meds given, pt tolerated well, no distress, pt sitting up in bed eating breakfast at this time, safety maintained.
--- NOTE | 2018-04-30 11:37 | NUR ---
CONSULTATION PAGED REASON FOR CONSULTATION: AT [place] WAS CONSULT CALLED? YES PERSON WHO WAS NOTIFIED: SALINAS CONSULTING PHYSICIAN: DR. MENDEZ, DR. SMITH ADVERTISING PRODUCTION MANAGER. COMPLIANCE PROFESSIONAL SPECIALTY: CARDIOVASCULAR REQUESTING PHYSICIAN: DR. BOWLING
[2018-04-30 11:51] VITALS: BP_SYST 147
--- NOTE | 2018-04-30 12:09 | NUR ---
CONSULT DR. GUALLPA ASSOCIATE PROFESSOR COMPUTER SCIENCE FOR DR. MENDEZ
--- NOTE | 2018-04-30 12:34 | NUR ---
PT SITTING UP IN CHAIR AT [facility], HAVING LUNCH, DENIES ANY CHEST PAIN/ SOB. CALL LIGHT VISIBLY WITHIN REACH, PT ENCOURAGED TO CALL FOR HELP DURING AMBULATION. NO NEEDS AT THIS TIME SAFETY MAINTAINED.
--- NOTE | 2018-04-30 15:32 | NUR ---
spoke with pts regarding pt last colonoscopy. stated "he only has 8 inches of colon left" & "loss of sphincter muscle tone". pt does not know the exact date of his last colonoscopy. she stated "it was quite a while ago at [facility]"
[2018-04-30] MEDS ORDERED: LOSARTAN POTASSIUM 50 MG TABLET (COZAAR) PO ONE (16:00)
[2018-04-30 16:24] VITALS: BP_SYST 122
--- NOTE | 2018-04-30 16:52 | NUR ---
meds pt laying in bed watching tv, no distress noted. safety maitnained. subq procrit given at this time blood sugar checked 112, no coverage per md order- pt here for hypoglycemia. 1x dose losaartan given as well.
[2018-04-30] MEDS ORDERED: EPOETIN ALFA 10,000 UNITS/ML VIAL SUBCUT SCH (17:00)
--- NOTE | 2018-04-30 19:24 | NUR ---
CLOSING NOTE ALL NEEDS MET THROUGH SHIFT, SAFETY MAINTAINED, CARE ENDORSED TO SILICA DRY PRESS HELPER RN
--- NOTE | 2018-04-30 19:28 | NUR ---
OPENING NOTE RECEIVED CARE OF PT. PT RESTING IN BED WITH EYES CLOSED. NO SIGN OF ACUTE DISTRESS NOTED. VISIBLE SYMMETRICAL RISE AND FALL OF CHEST TO ROOM AIR. SKIN IS WARM AND DRY TO TOUCH. PT EASILY AROUSED TO SPEECH. SAFETY PRECAUTIONS MAINTAINED: BED IN LOWEST POSITION, CALL LIGHT WITH PT, SIDE RAILS UPX2, BED ALARM ON. WILL MONITOR.
[2018-04-30 20:00] VITALS: BP_SYST 130
--- NOTE | 2018-04-30 20:19 | NUR ---
ACCUCHECK BLOOD SUGAR OF 109. NO INSULIN COVERAGE.
[2018-04-30] MEDS ORDERED: DEXTROSE 50% JECT 50 ML DISP.SYRIN IVP PRN (22:30)
[2018-04-30] MEDS ORDERED: INSULIN LISPRO SLIDING SCALE 100 UNITS/ML VIAL (humaLOG) SUBCUT PRN (22:30)
--- NOTE | 2018-04-30 22:58 | NUR ---
AMBULATED TO RESTROOM AMBULATED TO RESTROOM WITH USE OF WALKER AND NURSE ASSIST. GAIT NOTED TO BE WEAK. PT TOLERATED ACTIVITY WELL. REPOSITIONED PT IN BED FOR COMFORT. NO SIGNS OF ACUTE DISTRESS NOTED. BREATHING IS UNLABORED TO ROOM AIR. SAFETY PRECAUTIONS OBSERVED: BED IN LOWEST POSITION, CALL LIGHT WITH PT, SIDE RAILS UP X2, BED ALARM ON. WILL MONITOR.
--- NOTE | 2018-05-01 01:05 | NUR ---
RESTING PT RESTING IN BED WITH EYES CLOSED. VISIBLE SYMMETRICAL RISE AND FALL OF CHEST. SKIN WARM AND DRY TO TOUCH. NO SIGNS OF ACUTE DISTRESS, BREATHING IS UNLABORED TO ROOM AIR. IV IS SALINE LOCKED. SAFETY PRECAUTIONS IN PLACE: BED IN LOWEST POSITION, CALL LIGHT WITH PT, SIDE RAILS UP X2, BED ALARM ON. WILL MONITOR.
[2018-05-01 02:21] VITALS: BP_SYST 133
--- NOTE | 2018-05-01 03:15 | NUR ---
SLEEPING PT RESTING IN BED WITH EYES CLOSED. VISIBLE SYMMETRICAL RISE AND FALL OF CHEST, BREATHING UNLABORED TO ROOM AIR. NO SIGN OF ACUTE DISTRESS, PT APPEARS TO BE COMFORTABLE. IV IS SALINE LOCKED. SAFETY PRECAUTIONS OBSERVED: BED IN LOWEST POSITION, CALL LIGHT WITH PT, SIDE RAILS UP X2, BED ALARM ON. WILL CONTINUE TO MONITOR.
--- NOTE | 2018-05-01 03:47 | NUR ---
AMBULATED TO RESTROOM PT AMBULATED TO RESTROOM WITH WALKER AND NURSE ASSIST. GAIT NOTED TO BE WEAK. PT DYSPNEIC ON EXERTION. PT REPOSITIONED IN BED FOR COMFORT. PT ENCOURAGED TO CALL FOR ASSISTANCE. SAFETY PRECAUTIONS IN PLACE. WILL MONITOR.
--- NOTE | 2018-05-01 04:49 | NUR ---
WOUND CARE WOUND CARE PROVIDED. SKIN TEAR CLEANSED WITH NS, PATTED DRY, COVERED WITH OIL EMULSION DRESSING, COVERED WITH FOAM DRESSING. PT TOLERATED WELL. NO S/S OF DISTRESS. SAFETY PRECAUTIONS IN PLACE. WILL MONITOR.
--- NOTE | 2018-05-01 05:55 | NUR ---
ACCUCHECK BLOOD SUGAR 106. NO INSULIN COVERAGE PER SLIDING SCALE.
--- NOTE | 2018-05-01 06:31 | NUR ---
CLOSING NOTE ALL NEEDS MET THROUGHOUT SHIFT. SAFETY MAINTAINED. WILL ENDORSE CARE TO DAY SHIFT RN.
--- NOTE | 2018-05-01 07:18 | NUR ---
Opening Note patient resting in bed, awake and alert, no signs of distress, breathing unlabored and symmetrical, educated patient on use of call light for assistance, verbalized understanding, call light and bedside table left within reach, will continue to monitor
--- NOTE | 2018-05-01 07:20 | NUR ---
Dr. Yepez Rounded plans for EGD tomorrow, will await orders
[2018-05-01] MEDS: ATORVASTATIN 20 MG TABLET PO SCH (08:42)
[2018-05-01] MEDS: FAMOTIDINE 20 MG TABLET PO SCH (08:43)
[2018-05-01] MEDS: ASPIRIN 81 MG TABLET(ECOTRIN) PO SCH (08:43)
[2018-05-01] MEDS: METOPROLOL SUCCINATE 25 MG TAB.SR.24H (TOPROL XL) PO SCH (08:43)
[2018-05-01] MEDS: AMIODARONE HCL 200 MG TABLET PO SCH (08:44)
[2018-05-01] MEDS: APIXABAN 2.5 MG TABLET PO SCH ×2 (08:45→20:45)
[2018-05-01 08:49] LABS: HEMOGLOBIN 8.6 g/dL (14.0-18.0); RED BLOOD CELL COUNT(AUTO) 2.53 MIL/uL (4.2-6.2); WHITE BLOOD COUNT (AUTO) 4.6 K/uL (4.8-10.8)
[2018-05-01 08:50] LABS: HEMATOCRIT 26.8 % (36-54); LYMPHOCYTES % (AUTO) 19.1 % (20.5-51.5); MEAN CORPUSCULAR HEMOGLOBIN 34 pg (27-31); MEAN CORPUSCULAR HGB CONC 32 % (32-36); MEAN CORPUSCULAR VOLUME 106 fL (79.0-98.0); NEUTROPHILS % (AUTO) 66.7 % (40.0-70.0); PLATELET COUNT (AUTO) 152 K/uL (130-430); RED CELL DISTRIBUTION WIDTH 25.8 % (9.0-15.0)
[2018-05-01 08:51] LABS: BASOPHILS % (AUTO) 0.9 % (0.0-2.0); EOSINOPHILS # (AUTO) 0.1 K/uL (0.0-0.4); EOSINOPHILS % (AUTO) 1.2 % (0.0-4.0); LYMPHOCYTES # (AUTO) 0.9 K/uL (1.0-5.5); MONOCYTES # (AUTO) 0.6 K/uL (0.0-1.0); MONOCYTES % (AUTO) 12.1 % (1.7-9.3)
[2018-05-01 08:54] VITALS: BP_SYST 143
--- NOTE | 2018-05-01 08:56 | NUR ---
Medication Administration educated patient regarding meds, verbalized understanding, tolerated well, denies pain, was sitting on side of bed, legs dangling, he ambulated with steady gait to sink, no other needs at this time, educated patient regarding meds, verbalized understanding, call light and bedside table left within reach, will continue to monitor patient
--- NOTE | 2018-05-01 11:30 | NUR ---
Blood Sugar/Dr. Live Rounded no insulin needed per sliding scale, spoke with Maria T Pinedo at nurses' station, informed her of Dr. Yepez's plans for EGD/Colonoscopy tomorrow, verbalized understanding, will implement new orders
[2018-05-01 12:02] VITALS: BP_SYST 144
--- NOTE | 2018-05-01 13:38 | NUR ---
Patient's at Bedside at this time, asked about transfer plans and stated she chose [facility] as first choice for transfer placement, said she left voicemail for case management, also aware of EDG/Colonoscopy plans
--- NOTE | 2018-05-01 15:40 | NUR ---
Patient Had BM at this time, was changed and repositioned, tolerated well
[2018-05-01 16:25] VITALS: BP_SYST 156
[2018-05-01] MEDS ORDERED: BISACODYL 5 MG TABLET.DR (DULCOLAX) PO ONE (17:00)
--- NOTE | 2018-05-01 17:44 | NUR ---
Blood Sugar/Dulcolax no insulin coverage needed per sliding scale, educated patient on laxative, verbalized understanding, signed consent for EGD/colonoscopy, patient had BM, was cleaned and repositioned, no complaints of pain, educated patient on use of call light for assistance, verbalized understanding, call light and bedside table left within reach, will continue to monitor patient
[2018-05-01] MEDS ORDERED: GOLYTELY / COLYTE SOLUTION 4 LITERS PO ONE (18:00)
--- NOTE | 2018-05-01 18:46 | NUR ---
Closing Note patient sitting up in bed, had clear liquid dinner tray, vomited x1. he was cleansed, stated feeling better. Taz at bedside, will inform warehouse worker 2nd shift nurse of patient's condition, no other needs at this time, safety precautions in place, will endorse to warehouse worker 2nd shift nurse
--- NOTE | 2018-05-01 19:24 | NUR ---
OPENING NOTE RECEIVED CARE OF PT. PT RESTING IN BED, EASILY AROUSED TO SPEECH, STATES THAT HE FEELS TIRED. IV IS SALINE LOCKED, NO SIGN OF INFILTRATION AT IV SITE. BREATHING IS UNLABORED TO ROOM AIR. NO S/S OF DISTRESS. PT STATES NAUSEA IS SLIGHTLY IMPROVING. PT ENCOURAGED TO CALL FOR ASSISTANCE. SAFETY PRECAUTIONS IN PLACE: BED IN LOWEST POSITION, CALL LIGHT WITH PT, SIDE RAILS UP X2, BED ALARM ON.
[2018-05-01 20:00] VITALS: BP_SYST 141
--- NOTE | 2018-05-01 20:30 | NUR ---
AMBULATED TO RESTROOM/COMPLETE LINEN CHANGE PT AMBULATED TO RESTROOM WITH WALKER AND NURSE ASSIST. GAIT NOTED TO BE WEAK. PT CLEANED AND PROVIDED COMPLETE LINEN AND GOWN CHANGE. PT REPOSITIONED FOR COMFORT. ENCOURAGED PT TO CALL FOR ASSISTANCE. SAFETY PRECAUTIONS OBSERVED. WILL MONITOR.
--- NOTE | 2018-05-01 20:47 | NUR ---
ACCUCHECK BLOOD SUGAR 155. NO INSULIN COVERAGE PER SLIDING SCALE.
--- NOTE | 2018-05-01 22:45 | NUR ---
AMBULATED TO RESTROOM PT AMBULATED TO RESTROOM WITH WALKER AND NURSE ASSIST. PT CLEANED AND REPOSITIONED IN BED. SAFETY PRECAUTIONS MAINTAINED. WILL MONITOR.
--- NOTE | 2018-05-02 | NUR ---
NPO PT EDUCATED REGARDING NPO STATUS FOR EGD AND COLONOSCOPY PROCEDURES. PT VERBALIZED UNDERSTANDING. NPO CONE AT BEDSIDE. WILL MONITOR.
--- NOTE | 2018-05-02 00:50 | NUR ---
COMPLETE LINEN AND GOWN CHANGE PT CLEANED AND COMPLETE LINEN AND GOWN CHANGE PROVIDED. NO S/S OF DISTRESS, PT DENIES PAIN, BREATHING IS UNLABORED TO ROOM AIR. PT ENCOURAGED TO CALL FOR ASSISTANCE. SAFETY PRECAUTIONS IN PLACE. WILL MONITOR.
--- NOTE | 2018-05-02 02:45 | NUR ---
SLEEPING PT SLEEPING IN BED, VISIBLE SYMMETRICAL RISE AND FALL OF CHEST TO ROOM AIR. NO S/S OF ACUTE DISTRESS. NPO STATUS MAINTAINED. SAFETY PRECAUTIONS OBSERVED. WILL MONITOR.
--- NOTE | 2018-05-02 04:45 | NUR ---
TAP WATER ENEMA PT GIVEN TAP WATER ENEMA UNTIL CLEAR. PT TOLERATED WELL. NO S/S OF DISTRESS. BREATHING UNLABORED TO ROOM AIR. SAFETY PRECAUTIONS IN PLACE. WILL MONITOR.
[2018-05-02 06:01] VITALS: BP_SYST 137
--- NOTE | 2018-05-02 06:28 | NUR ---
CLOSING NOTE PT RESTING IN BED, EVEN RISE AND FALL OF CHEST BILATERALLY, SKIN IS WARM AND DRY TO TOUCH. NO S/S OF DISTRESS. IV IS SALINE LOCKED, NO SIGN OF INFILTRATION AT IV SITE. SAFETY PRECAUTIONS IN PLACE. ALL NEEDS MET DURING SHIFT. WILL CONTINUE TO MONITOR UNTIL PATIENT CARE IS ENDORSED TO ONCOMING DAY SHIFT RN.
--- NOTE | 2018-05-02 07:26 | NUR ---
Opening Note received report from shift commander RN, pt resting in bed, respirations even and unlabored, no acute distress noted, pt educated on use of call light and asked to call for assistance, pt verbalized understanding, call light in reach, bed in low and locked position, bed alarm on, fall and aspiration precautions in place.
[2018-05-02 07:35] LABS: ANION GAP 12 (5-15); CALCIUM 7.9 mg/dL (8.4-11.0); CHLORIDE 96 mmol/L (98-107); CREATININE 6.62 mg/dL (0.55-1.30); GLUCOSE 105 mg/dL (70-99); POTASSIUM 5.2 mmol/L (3.5-5.1); SODIUM SERUM 133 mmol/L (136-145); UREA NITROGEN, BLOOD 62 mg/dL (8-21)
[2018-05-02 08:00] VITALS: BP_SYST 131
[2018-05-02 08:17] LABS: PROTHROMBIN TIME 10.7 SECS (9.5-12.5)
--- NOTE | 2018-05-02 08:50 | NUR ---
Hemodialysis spoke with GI lab, per GI lab okay to start dialysis this AM, tobacco sprayer at bedside starting dialysis, no acute distress noted.
[2018-05-02 08:52] LABS: HEMATOCRIT 27.8 % (36-54); HEMOGLOBIN 9.1 g/dL (14.0-18.0); MEAN CORPUSCULAR VOLUME 106 fL (79.0-98.0); RED BLOOD CELL COUNT(AUTO) 2.63 MIL/uL (4.2-6.2); WHITE BLOOD COUNT (AUTO) 4.3 K/uL (4.8-10.8)
[2018-05-02 08:53] LABS: EOSINOPHILS % (AUTO) 1.4 % (0.0-4.0); LYMPHOCYTES % (AUTO) 19.1 % (20.5-51.5); MEAN CORPUSCULAR HEMOGLOBIN 35 pg (27-31); MEAN CORPUSCULAR HGB CONC 33 % (32-36); MONOCYTES % (AUTO) 10.8 % (1.7-9.3); NEUTROPHILS % (AUTO) 67.7 % (40.0-70.0); PLATELET COUNT (AUTO) 147 K/uL (130-430)
[2018-05-02 08:54] LABS: BASOPHILS # (AUTO) 0.1 K/uL (0.0-0.2); EOSINOPHILS # (AUTO) 0.1 K/uL (0.0-0.4); LYMPHOCYTES # (AUTO) 0.8 K/uL (1.0-5.5); MONOCYTES # (AUTO) 0.5 K/uL (0.0-1.0); NEUTROPHILS # (AUTO) 2.9 K/uL (1.8-7.7); RED CELL DISTRIBUTION WIDTH 25.4 % (9.0-15.0)
--- NOTE | 2018-05-02 10:17 | NUR ---
Discharge Planning: DCP faxed pt referral to [facility] (f [phone] p [phone]); DCP to follow up. Addendum: 05/02/18 at 1229 by Leyla Carrizales DP [facility] (f [phone] p [phone]) pt accepted to 15. Addendum: 05/02/18 at 1632 by Leyla Carrizales DP [facility] (f [phone] p [phone]) pt accepted to 15A, transportation arranged with [facility] ([phone]) Will Call, DCP spoke to charge nurse. Addendum: 05/02/18 at 1636 by Leyla Carrizales DP Patient packet at [facility]
--- NOTE | 2018-05-02 10:21 | NUR ---
RN Rounds pt resting in bed, no acute distress noted, pt currently receiving hemodialysis, wire inspector at bedside, no additional needs at this time.
[2018-05-02] MEDS ORDERED: SIMETHICONE 40 MG/0.6 ML ML ONE (10:27)
[2018-05-02] MEDS: fentaNYL CITRATE/PF 100 MCG/2 ML AMP ONE ×3 (10:27→13:55)
[2018-05-02] MEDS: MIDAZOLAM HCL 5 MG/5 ML VIAL ONE ×2 (10:27→13:48)
--- NOTE | 2018-05-02 11:08 | NUR ---
LUIS MIGUEL LOZA SPOKE WITH PATIENT'S BRITTANY [phone] WHO IS AGREEABLE TO HAVING PATIENT PLACED AT [facility]. RECEIVED MESSAGE FROM SMILEY AT [facility] STATING PATIENT IS ACCEPTED. SAYS PATIENT IS PICKED UP FOR DIALYSIS AT 1100 BY [facility] [facility] M// AND GOES TO [facility]. IS UNSURE OF CHAIR TIME. EXPLAINED THAT PATIENT WILL BE DISCHARGED ONCE CONSIDERED STABLE, HE IS CURRENTLY RECEIVING DIALYSIS AND WILL HAVE EGD/COLONOSCOPY TODAY. RN TO CALL HER TO NOTIFY WHEN PATIENT IS DISCHARGED. Addendum: 05/02/18 at 1550 by Macy Nelson RN UPDATED BRITTANY WHO ASKED WHEN PATIENT WAS TRANSFERRING. EXPLAINED WE ARE WAITING ON PATIENT TO BE CLEARED FOR DISCHARGE BY MD AND THAT IT MAY NOT BE TONIGHT.
--- NOTE | 2018-05-02 11:24 | NUR ---
Pt Note Patient on dialysis, hold therapy for today, nursing aware.
[2018-05-02 11:41] LABS: FERRITIN 1166 ng/mL (30-400)
--- NOTE | 2018-05-02 12:05 | NUR ---
Hemodialysis hemodialysis completed, 2.4L out, no bleeding from AV shunt, no acute distress noted, fall and aspiration precautions in place.
[2018-05-02 12:23] VITALS: BP_SYST 107
--- NOTE | 2018-05-02 12:45 | NUR ---
Cleaned/Repositioned pt incontinent of bowel, liquid x1, pt cleaned and linen changed, pt assisted to reposition, tolerated well, no acute distress noted.
--- NOTE | 2018-05-02 13:18 | NUR ---
to GI lab pt taken to GI lab via franny azul alert ID band on left arm, no acute distress noted.
--- NOTE | 2018-05-02 14:53 | NUR ---
back from GI lab pt brought back to room from GI lab via jorge alberto, no acute distress noted, called dietary for full liquid tray, bed in low and locked position, bed alarm on, call light in reach, fall and aspiration precautions in place.
[2018-05-02 14:54] VITALS: BP_SYST 115
[2018-05-02] MEDS: ASPIRIN 81 MG TABLET(ECOTRIN) PO SCH (15:12)
[2018-05-02] MEDS: METOPROLOL SUCCINATE 25 MG TAB.SR.24H (TOPROL XL) PO SCH (15:12)
[2018-05-02] MEDS: FAMOTIDINE 20 MG TABLET PO SCH (15:12)
[2018-05-02] MEDS: ATORVASTATIN 20 MG TABLET PO SCH (15:12)
[2018-05-02] MEDS: AMIODARONE HCL 200 MG TABLET PO SCH (15:12)
--- NOTE | 2018-05-02 15:17 | NUR ---
Medication pt educated on medication use and side effects, pt verbalized understanding, tolerated medication administration well, no acute distress noted, fall and aspiration precautions in place.
--- NOTE | 2018-05-02 15:40 | NUR ---
Wound Care pt educated on purpose and procedure for wound care, pt verbalized understanding, wound care completed for skin tear to left forearm and right hand, pt tolerated well, pt denies any pain during or after wound care, no acute distress noted.
[2018-05-02 16:21] VITALS: BP_SYST 124
[2018-05-02] MEDS ORDERED: FAMO-132 PO (17:19)
--- NOTE | 2018-05-02 17:24 | NUR ---
RN Rounds pt resting in bed, no acute distress noted, no additional needs at this time, fall and aspiration precautions in place.
[2018-05-02 17:50] VITALS: BP_SYST 124
--- NOTE | 2018-05-02 17:50 | NUR ---
Called Report called report to [facility], gave SBAR report to Jenna, informed her of pickup time 1840, understanding verbalized.
--- NOTE | 2018-05-02 18:00 | NUR ---
Spoke with pts Spoke with pts Florencia, informed her of pts transfer to [facility] today at 1840, telephone consent obtained with second RN, Florencia verbalized understanding.
--- NOTE | 2018-05-02 18:35 | NUR ---
Discharge orders to discharge pt to [facility], pt provided with discharge packet and instructions, pt verbalized understanding, IV catheter removed, catheter intact, no bleeding, hospital ID band removed, plain ID band in place, tele monitor removed, report given to [facility] ambulance, pt transported via gurney by S ambulance, all belongings sent with pt.
== END 2018-05-02 18:35 | DRG 391 ==
LOC: SED 10:19 → STU 12:27
PROVIDERS: ADMIT Internal Medicine; ATTEND Internal Medicine
PROC: 30233N1 Transfusion of Nonautologous Red Blood Cells into Peripheral Vein, Percutaneous Approach (ICD-10-PCS; principal; 2018-04-28)
PROC: 5A1D70Z Performance of Urinary Filtration, Intermittent, Less than 6 Hours Per Day (ICD-10-PCS; 2018-04-29)
PROC: 0DB98ZX Excision of Duodenum, Via Natural or Artificial Opening Endoscopic, Diagnostic (ICD-10-PCS; 2018-05-02)
PROC: 0DB68ZX Excision of Stomach, Via Natural or Artificial Opening Endoscopic, Diagnostic (ICD-10-PCS; 2018-05-02)
PROC: 0DB48ZX Excision of Esophagogastric Junction, Via Natural or Artificial Opening Endoscopic, Diagnostic (ICD-10-PCS; 2018-05-02)
PROC: 0DBP8ZZ Excision of Rectum, Via Natural or Artificial Opening Endoscopic (ICD-10-PCS; 2018-05-02)
PROC: 5A1D70Z Performance of Urinary Filtration, Intermittent, Less than 6 Hours Per Day (ICD-10-PCS; 2018-05-02 14:30)
DX: K29.60 Other gastritis without bleeding (principal); E43 Unspecified severe protein-calorie malnutrition; N18.6 End stage renal disease; I13.2 Hypertensive heart and chronic kidney disease with heart failure and with stage 5 chronic kidney disease, or end stage renal disease; C18.9 Malignant neoplasm of colon, unspecified; I48.1 Persistent atrial fibrillation; C64.9 Malignant neoplasm of unspecified kidney, except renal pelvis; I42.0 Dilated cardiomyopathy; E11.649 Type 2 diabetes mellitus with hypoglycemia without coma; D63.8 Anemia in other chronic diseases classified elsewhere; Z96.659 Presence of unspecified artificial knee joint; E11.22 Type 2 diabetes mellitus with diabetic chronic kidney disease; C61 Malignant neoplasm of prostate; D53.9 Nutritional anemia, unspecified; K52.9 Noninfective gastroenteritis and colitis, unspecified; E78.5 Hyperlipidemia, unspecified; K90.0 Celiac disease; K62.1 Rectal polyp; E87.5 Hyperkalemia; I25.10 Atherosclerotic heart disease of native coronary artery without angina pectoris; I25.5 Ischemic cardiomyopathy; I48.0 Paroxysmal atrial fibrillation; I50.9 Heart failure, unspecified; Z79.01 Long term (current) use of anticoagulants; Z85.51 Personal history of malignant neoplasm of bladder; Z87.891 Personal history of nicotine dependence; Z90.5 Acquired absence of kidney; Z95.1 Presence of aortocoronary bypass graft; Z99.2 Dependence on renal dialysis; Z79.84 Long term (current) use of oral hypoglycemic drugs; Z79.82 Long term (current) use of aspirin; Z68.30 Body mass index [BMI] 30.0-30.9, adult
CPT/HCPCS: 36415; 43239; 45382; 45384; 71045; 80048; 80053; 82140-TC; 82272; 82607; 82728; 82746; 82962; 83036; 83540-TC; 83550-TC; 83605; 83735-TC; 84443-TC; 84484; 85025; 85610-TC; 85730-TC; 86886; 86900; 86901; 86920; 87040-TC; 87081; 88305; 88312; 88313; 90935; 90937; 93005; 96374; 97112-GP; 99291; G0378; J0885; J2250; J3010; J7030; J7050; P9021

== ENCOUNTER 2018-07-14 19:23 | Inpatient (IN) | payer OTHER, MEDICARE ==
[~2018-07-14] VITALS: Ht 160 cm; Wt 65.8 kg
[~2018-07-14 19:23] MED LIST changes: +AMI200 PO; +ASPI-1153 PO; +FAMO-132 PO; -HUM10VIA3 SUBCUT; -HYDR-4100 PO; +LIP40 PO; -SEN30 PO; +TRAM-350 PO; -VITD2000 PO
[2018-07-14 19:28] VITALS: BP_SYST 142
[2018-07-14] MEDS ORDERED: NACL 0.9% 1,000 ML IV ONE (19:45)
[2018-07-14] MEDS ORDERED: LORazepam 1 MG TABLET PO ONE (20:00)
[2018-07-14 20:02] LABS: BASOPHILS # (AUTO) 0.1 K/uL (0.0-0.2); BASOPHILS % (AUTO) 1.3 % (0.0-2.0); EOSINOPHILS # (AUTO) 0.1 K/uL (0.0-0.4); EOSINOPHILS % (AUTO) 1.7 % (0.0-4.0); LYMPHOCYTES # (AUTO) 1.3 K/uL (1.0-5.5); LYMPHOCYTES % (AUTO) 20.7 % (20.5-51.5); MEAN CORPUSCULAR HEMOGLOBIN 33 pg (27-31); MEAN CORPUSCULAR HGB CONC 32 % (32-36); MEAN CORPUSCULAR VOLUME 104 fL (79.0-98.0); MONOCYTES # (AUTO) 0.7 K/uL (0.0-1.0); NEUTROPHILS % (AUTO) 64.3 % (40.0-70.0); PLATELET COUNT (AUTO) 245 K/uL (130-430); RED BLOOD CELL COUNT(AUTO) 2.09 MIL/uL (4.2-6.2); RED CELL DISTRIBUTION WIDTH 21.5 % (9.0-15.0); WHITE BLOOD COUNT (AUTO) 6.2 K/uL (4.8-10.8)
[2018-07-14 20:04] LABS: HEMATOCRIT 21.8 % (36-54); HEMOGLOBIN 6.9 g/dL (14.0-18.0)
[2018-07-14 20:16] LABS: ANION GAP 7 (5-15); CALCIUM 9.3 mg/dL (8.4-11.0); CHLORIDE 97 mmol/L (98-107); CREATININE 4.86 mg/dL (0.55-1.30); GLUCOSE 163 mg/dL (70-99); SODIUM SERUM 134 mmol/L (136-145); UREA NITROGEN, BLOOD 28 mg/dL (8-21)
[2018-07-14 20:22] LABS: ALANINE AMINOTRANSFERASE 23 U/L (12-78); ALBUMIN 2.8 g/dL (3.4-4.8); ASPARTATE AMINOTRANSFERASE 25 U/L (10-37)
[2018-07-14 21:41] VITALS: BP_SYST 120
[2018-07-14 22:35] VITALS: BP_SYST 89
[2018-07-14 22:50] VITALS: BP_SYST 102
[2018-07-15] VITALS (11 sets, daily range): BP systolic 91–155
[2018-07-15] MEDS ORDERED: LORazepam 2 MG/ML VIAL IVP PRN (06:00)
[2018-07-15] MEDS ORDERED: HYDROcodone/ACETAMIN 5-325 MG TAB (NORCO/ VICODIN) PO PRN (06:00)
[2018-07-15] MEDS: NORMAL SALINE 5 ML DISP.SYRIN IVF SCH ×3 (06:00→20:34)
[2018-07-15] MEDS ORDERED: ACETAMINOPHEN 325 MG TABLET PO PRN (06:00)
[2018-07-15] MEDS ORDERED: ONDANSETRON HCL 4 MG/2 ML VIAL IVP PRN (06:00)
[2018-07-15] MEDS: CALCIUM ACETATE 667 MG CAP PO SCH ×3 (07:26→20:33)
[2018-07-15 08:48] LABS: BASOPHILS # (AUTO) 0.1 K/uL (0.0-0.2); BASOPHILS % (AUTO) 1.2 % (0.0-2.0); EOSINOPHILS # (AUTO) 0.1 K/uL (0.0-0.4); EOSINOPHILS % (AUTO) 1.7 % (0.0-4.0); HEMATOCRIT 22.9 % (36-54); HEMOGLOBIN 7.6 g/dL (14.0-18.0); LYMPHOCYTES # (AUTO) 0.9 K/uL (1.0-5.5); LYMPHOCYTES % (AUTO) 18.9 % (20.5-51.5); MEAN CORPUSCULAR HEMOGLOBIN 32 pg (27-31); MEAN CORPUSCULAR HGB CONC 33 % (32-36); MEAN CORPUSCULAR VOLUME 96 fL (79.0-98.0); MONOCYTES # (AUTO) 0.6 K/uL (0.0-1.0); MONOCYTES % (AUTO) 12.4 % (1.7-9.3); NEUTROPHILS # (AUTO) 3.1 K/uL (1.8-7.7); NEUTROPHILS % (AUTO) 65.8 % (40.0-70.0); PLATELET COUNT (AUTO) 188 K/uL (130-430); RED BLOOD CELL COUNT(AUTO) 2.38 MIL/uL (4.2-6.2); RED CELL DISTRIBUTION WIDTH 21.6 % (9.0-15.0); WHITE BLOOD COUNT (AUTO) 4.7 K/uL (4.8-10.8)
[2018-07-15] MEDS: FAMOTIDINE 20 MG TABLET PO SCH (08:52)
[2018-07-15] MEDS: AMIODARONE HCL 200 MG TABLET PO SCH (08:52)
[2018-07-15] MEDS: ATORVASTATIN 20 MG TABLET PO SCH (08:52)
[2018-07-15] MEDS: ASPIRIN 81 MG TABLET(ECOTRIN) PO SCH (08:52)
[2018-07-15] MEDS: NEPHROVITE, (FOLIC ACID/VITAMIN B COMP W-C 1 TAB) PO SCH (08:52)
[2018-07-15] MEDS: METOPROLOL SUCCINATE 25 MG TAB.SR.24H (TOPROL XL) PO SCH (08:53)
[2018-07-15] MEDS ORDERED: NON-FORMULARY MEDICATION (Tramadol Hcl/Acetaminophen (Acetaminophn-Tramadol 325-37.5) 1 TA PO SCH (09:00)
[2018-07-15 09:06] LABS: ANION GAP 3 (5-15); CALCIUM 8.5 mg/dL (8.4-11.0); CHLORIDE 100 mmol/L (98-107); GLUCOSE 155 mg/dL (70-99); SODIUM SERUM 135 mmol/L (136-145); UREA NITROGEN, BLOOD 32 mg/dL (8-21)
[2018-07-15 09:12] LABS: ALANINE AMINOTRANSFERASE 19 U/L (12-78); ALBUMIN 2.3 g/dL (3.4-4.8); ASPARTATE AMINOTRANSFERASE 22 U/L (10-37); TOTAL BILIRUBIN 0.9 mg/dL (0.0-1.0)
[2018-07-15] MEDS ORDERED: APIX2.5T PO (10:17)
[2018-07-15] MEDS: EPOETIN ALFA 10,000 UNITS/ML VIAL SUBCUT SCH (18:41)
[2018-07-15] MEDS: HYDROcodone/ACETAMIN 10-325 MG TAB PO PRN (21:53)
[2018-07-16 01:19] VITALS: BP_SYST 148
[2018-07-16] MEDS: NORMAL SALINE 5 ML DISP.SYRIN IVF SCH ×3 (05:29→21:34)
[2018-07-16] MEDS: CALCIUM ACETATE 667 MG CAP PO SCH ×3 (05:29→21:31)
[2018-07-16] MEDS: HYDROcodone/ACETAMIN 10-325 MG TAB PO PRN (05:46)
[2018-07-16 07:10] LABS: ALANINE AMINOTRANSFERASE 20 U/L (12-78); ALBUMIN 2.3 g/dL (3.4-4.8); ANION GAP 6 (5-15); ASPARTATE AMINOTRANSFERASE 23 U/L (10-37); CALCIUM 8.7 mg/dL (8.4-11.0); CHLORIDE 103 mmol/L (98-107); CHOLESTEROL 60 mg/dL (<200); CREATININE 4.28 mg/dL (0.55-1.30); GLUCOSE 123 mg/dL (70-99); HDL CHOLESTEROL 31 mg/dL (>45); LDL CHOLESTEROL 22 mg/dL (<100); PHOSPHORUS 3.2 mg/dL (2.7-4.5); POTASSIUM 4.2 mmol/L (3.5-5.1); SODIUM SERUM 138 mmol/L (136-145); TRIGLYCERIDES 52 mg/dL (30-150); UREA NITROGEN, BLOOD 21 mg/dL (8-21)
[2018-07-16 07:35] LABS: TOTAL IRON BIND. CAPACITY 136 ug/dL (250-450)
[2018-07-16 08:00] VITALS: BP_SYST 155
[2018-07-16 08:11] LABS: INR 1.2 (0.80-1.20); PROTHROMBIN TIME 12.7 SECS (9.5-12.5)
[2018-07-16] MEDS: ASPIRIN 81 MG TABLET(ECOTRIN) PO SCH (08:20)
[2018-07-16] MEDS: NEPHROVITE, (FOLIC ACID/VITAMIN B COMP W-C 1 TAB) PO SCH (08:20)
[2018-07-16] MEDS: FAMOTIDINE 20 MG TABLET PO SCH (08:20)
[2018-07-16] MEDS: ATORVASTATIN 20 MG TABLET PO SCH (08:20)
[2018-07-16] MEDS: AMIODARONE HCL 200 MG TABLET PO SCH (08:21)
[2018-07-16] MEDS: METOPROLOL SUCCINATE 25 MG TAB.SR.24H (TOPROL XL) PO SCH (08:21)
[2018-07-16 08:27] LABS: BASOPHILS % (AUTO) 0.9 % (0.0-2.0); EOSINOPHILS # (AUTO) 0.1 K/uL (0.0-0.4); HEMATOCRIT 23.1 % (36-54); HEMOGLOBIN 7.7 g/dL (14.0-18.0); MEAN CORPUSCULAR HEMOGLOBIN 32 pg (27-31); MEAN CORPUSCULAR HGB CONC 33 % (32-36); MEAN CORPUSCULAR VOLUME 98 fL (79.0-98.0); MONOCYTES # (AUTO) 0.6 K/uL (0.0-1.0); MONOCYTES % (AUTO) 12.3 % (1.7-9.3); NEUTROPHILS # (AUTO) 2.8 K/uL (1.8-7.7); NEUTROPHILS % (AUTO) 62.8 % (40.0-70.0); PLATELET COUNT (AUTO) 202 K/uL (130-430); RED BLOOD CELL COUNT(AUTO) 2.37 MIL/uL (4.2-6.2); RED CELL DISTRIBUTION WIDTH 21.8 % (9.0-15.0); WHITE BLOOD COUNT (AUTO) 4.5 K/uL (4.8-10.8)
[2018-07-16] MEDS ORDERED: D5W 1,000 ML IV PRN (08:28)
[2018-07-16] MEDS ORDERED: GLUCOSE 15 GM GEL (in 37.5 GM TUBE) PO PRN (08:30)
[2018-07-16] MEDS ORDERED: DEXTROSE 50% JECT 50 ML DISP.SYRIN IVP PRN (08:30)
[2018-07-16 11:24] VITALS: BP_SYST 125
[2018-07-16 15:53] VITALS: BP_SYST 143
[2018-07-16 19:47] VITALS: BP_SYST 146
[2018-07-16] MEDS: LORazepam 2 MG/ML VIAL IVP PRN (21:55)
[2018-07-16 23:46] VITALS: BP_SYST 157
[2018-07-17] MEDS: CALCIUM ACETATE 667 MG CAP PO SCH ×3 (06:30→21:03)
[2018-07-17] MEDS: NORMAL SALINE 5 ML DISP.SYRIN IVF SCH ×3 (06:33→21:00)
[2018-07-17 07:04] LABS: ANION GAP 7 (5-15); CALCIUM 8.5 mg/dL (8.4-11.0); CHLORIDE 104 mmol/L (98-107); CREATININE 5.74 mg/dL (0.55-1.30); GLUCOSE 104 mg/dL (70-99); POTASSIUM 4.6 mmol/L (3.5-5.1); SODIUM SERUM 140 mmol/L (136-145); UREA NITROGEN, BLOOD 30 mg/dL (8-21)
[2018-07-17 07:13] LABS: BASOPHILS % (AUTO) 1.2 % (0.0-2.0); EOSINOPHILS # (AUTO) 0.1 K/uL (0.0-0.4); EOSINOPHILS % (AUTO) 3.2 % (0.0-4.0); HEMOGLOBIN 7.1 g/dL (14.0-18.0); LYMPHOCYTES # (AUTO) 0.9 K/uL (1.0-5.5); LYMPHOCYTES % (AUTO) 24.3 % (20.5-51.5); MEAN CORPUSCULAR HEMOGLOBIN 32 pg (27-31); MEAN CORPUSCULAR HGB CONC 32 % (32-36); MEAN CORPUSCULAR VOLUME 99 fL (79.0-98.0); MONOCYTES # (AUTO) 0.4 K/uL (0.0-1.0); NEUTROPHILS # (AUTO) 2.2 K/uL (1.8-7.7); NEUTROPHILS % (AUTO) 59.3 % (40.0-70.0); PLATELET COUNT (AUTO) 210 K/uL (130-430); RED BLOOD CELL COUNT(AUTO) 2.21 MIL/uL (4.2-6.2); RED CELL DISTRIBUTION WIDTH 21.4 % (9.0-15.0); WHITE BLOOD COUNT (AUTO) 3.7 K/uL (4.8-10.8)
[2018-07-17 07:15] LABS: ALANINE AMINOTRANSFERASE 19 U/L (12-78); ALBUMIN 2.1 g/dL (3.4-4.8); ASPARTATE AMINOTRANSFERASE 24 U/L (10-37); PHOSPHORUS 3.8 mg/dL (2.7-4.5); TOTAL BILIRUBIN 0.9 mg/dL (0.0-1.0)
[2018-07-17 07:40] LABS: HEMATOCRIT 21.8 % (36-54)
[2018-07-17] MEDS ORDERED: GOLYTELY / COLYTE SOLUTION 4 LITERS PO ONE (08:00)
[2018-07-17] MEDS: AMIODARONE HCL 200 MG TABLET PO SCH (09:00)
[2018-07-17 09:03] VITALS: BP_SYST 138
[2018-07-17] MEDS: METOPROLOL SUCCINATE 25 MG TAB.SR.24H (TOPROL XL) PO SCH (09:07)
[2018-07-17] MEDS: NEPHROVITE, (FOLIC ACID/VITAMIN B COMP W-C 1 TAB) PO SCH (09:07)
[2018-07-17] MEDS: FAMOTIDINE 20 MG TABLET PO SCH (09:07)
[2018-07-17] MEDS: ASPIRIN 81 MG TABLET(ECOTRIN) PO SCH (09:07)
[2018-07-17] MEDS: ATORVASTATIN 20 MG TABLET PO SCH (09:07)
[2018-07-17 11:26] VITALS: BP_SYST 164
[2018-07-17] MEDS: LORazepam 2 MG/ML VIAL IVP PRN (14:58)
[2018-07-17 15:48] VITALS: BP_SYST 149
[2018-07-17] MEDS: INSULIN REGULAR, HUMAN 100 UNITS/ML, 10 ML VIAL (humuLIN R) SUBCUT PRN (17:22)
[2018-07-17] MEDS ORDERED: BISACODYL 5 MG TABLET.DR (DULCOLAX) PO ONE (18:00)
[2018-07-17 19:14] VITALS: BP_SYST 98
[2018-07-17 23:37] VITALS: BP_SYST 154
[2018-07-18] MEDS: CALCIUM ACETATE 667 MG CAP PO SCH ×3 (05:49→21:17)
[2018-07-18] MEDS: NORMAL SALINE 5 ML DISP.SYRIN IVF SCH ×3 (05:54→21:17)
[2018-07-18 06:25] LABS: BASOPHILS # (AUTO) 0.1 K/uL (0.0-0.2); BASOPHILS % (AUTO) 1.4 % (0.0-2.0); EOSINOPHILS # (AUTO) 0.1 K/uL (0.0-0.4); EOSINOPHILS % (AUTO) 2.4 % (0.0-4.0); HEMATOCRIT 31.5 % (36-54); HEMOGLOBIN 10.4 g/dL (14.0-18.0); LYMPHOCYTES % (AUTO) 23.6 % (20.5-51.5); MEAN CORPUSCULAR HEMOGLOBIN 31 pg (27-31); MEAN CORPUSCULAR HGB CONC 33 % (32-36); MEAN CORPUSCULAR VOLUME 94 fL (79.0-98.0); MONOCYTES # (AUTO) 0.6 K/uL (0.0-1.0); MONOCYTES % (AUTO) 15.1 % (1.7-9.3); NEUTROPHILS # (AUTO) 2.4 K/uL (1.8-7.7); NEUTROPHILS % (AUTO) 57.5 % (40.0-70.0); PLATELET COUNT (AUTO) 217 K/uL (130-430); RED BLOOD CELL COUNT(AUTO) 3.34 MIL/uL (4.2-6.2); RED CELL DISTRIBUTION WIDTH 19.2 % (9.0-15.0); WHITE BLOOD COUNT (AUTO) 4.2 K/uL (4.8-10.8)
[2018-07-18 06:28] LABS: ANION GAP 8 (5-15); CALCIUM 8.5 mg/dL (8.4-11.0); CHLORIDE 101 mmol/L (98-107); CREATININE 4.23 mg/dL (0.55-1.30); GLUCOSE 100 mg/dL (70-99); POTASSIUM 3.8 mmol/L (3.5-5.1); SODIUM SERUM 140 mmol/L (136-145); UREA NITROGEN, BLOOD 20 mg/dL (8-21)
[2018-07-18 06:39] LABS: ALANINE AMINOTRANSFERASE 22 U/L (12-78); ALBUMIN 2.5 g/dL (3.4-4.8); ASPARTATE AMINOTRANSFERASE 31 U/L (10-37); PHOSPHORUS 3.1 mg/dL (2.7-4.5); TOTAL BILIRUBIN 1.8 mg/dL (0.0-1.0)
[2018-07-18] MEDS ORDERED: LORazepam 2 MG/ML VIAL IVP ONE (07:45)
[2018-07-18 08:00] VITALS: BP_SYST 133
[2018-07-18] MEDS: ATORVASTATIN 20 MG TABLET PO SCH (09:35)
[2018-07-18] MEDS: NEPHROVITE, (FOLIC ACID/VITAMIN B COMP W-C 1 TAB) PO SCH (09:35)
[2018-07-18] MEDS: FAMOTIDINE 20 MG TABLET PO SCH (09:35)
[2018-07-18] MEDS: ASPIRIN 81 MG TABLET(ECOTRIN) PO SCH (09:36)
[2018-07-18] MEDS: AMIODARONE HCL 200 MG TABLET PO SCH (09:38)
[2018-07-18] MEDS: METOPROLOL SUCCINATE 25 MG TAB.SR.24H (TOPROL XL) PO SCH (09:38)
[2018-07-18] MEDS: HYDROcodone/ACETAMIN 10-325 MG TAB PO PRN (09:39)
[2018-07-18 11:24] VITALS: BP_SYST 142
[2018-07-18] MEDS: INSULIN REGULAR, HUMAN 100 UNITS/ML, 10 ML VIAL (humuLIN R) SUBCUT PRN ×2 (11:39→21:20)
[2018-07-18 15:12] VITALS: BP_SYST 159
[2018-07-18] MEDS ORDERED: BISACODYL 5 MG TABLET.DR (DULCOLAX) PO ONE (17:00)
[2018-07-18] MEDS: EPOETIN ALFA 10,000 UNITS/ML VIAL SUBCUT SCH (17:32)
[2018-07-18] MEDS ORDERED: MAGNESIUM CITRATE 300 ML ORAL SOLUTION PO ONE (19:00)
[2018-07-18 20:00] VITALS: BP_SYST 131
[2018-07-18 23:45] VITALS: BP_SYST 144
[2018-07-19] MEDS: CALCIUM ACETATE 667 MG CAP PO SCH ×2 (06:00→14:00)
[2018-07-19] MEDS: NORMAL SALINE 5 ML DISP.SYRIN IVF SCH ×2 (06:14→16:56)
[2018-07-19 06:33] LABS: BASOPHILS % (AUTO) 1.1 % (0.0-2.0); EOSINOPHILS # (AUTO) 0.1 K/uL (0.0-0.4); EOSINOPHILS % (AUTO) 2.7 % (0.0-4.0); HEMATOCRIT 32.8 % (36-54); HEMOGLOBIN 10.7 g/dL (14.0-18.0); LYMPHOCYTES % (AUTO) 29.4 % (20.5-51.5); MEAN CORPUSCULAR HEMOGLOBIN 31 pg (27-31); MEAN CORPUSCULAR HGB CONC 33 % (32-36); MEAN CORPUSCULAR VOLUME 95 fL (79.0-98.0); MONOCYTES # (AUTO) 0.5 K/uL (0.0-1.0); MONOCYTES % (AUTO) 15.2 % (1.7-9.3); NEUTROPHILS # (AUTO) 1.7 K/uL (1.8-7.7); NEUTROPHILS % (AUTO) 51.6 % (40.0-70.0); PLATELET COUNT (AUTO) 210 K/uL (130-430); RED BLOOD CELL COUNT(AUTO) 3.46 MIL/uL (4.2-6.2); RED CELL DISTRIBUTION WIDTH 19.6 % (9.0-15.0); WHITE BLOOD COUNT (AUTO) 3.4 K/uL (4.8-10.8)
[2018-07-19 06:48] LABS: ANION GAP 8 (5-15); CALCIUM 9.1 mg/dL (8.4-11.0); CHLORIDE 100 mmol/L (98-107); CREATININE 5.71 mg/dL (0.55-1.30); GLUCOSE 124 mg/dL (70-99); POTASSIUM 3.7 mmol/L (3.5-5.1); SODIUM SERUM 138 mmol/L (136-145); UREA NITROGEN, BLOOD 33 mg/dL (8-21)
[2018-07-19 06:53] LABS: PHOSPHORUS 3.3 mg/dL (2.7-4.5)
[2018-07-19] MEDS ORDERED: MEPERIDINE HCL/PF 25 MG/ML DISP.SYRIN ONE ×3 (07:04→07:05)
[2018-07-19] MEDS ORDERED: SIMETHICONE 40 MG/0.6 ML ML ONE (07:06)
[2018-07-19 07:24] LABS: INR 1.2 (0.80-1.20); PROTHROMBIN TIME 11.9 SECS (9.5-12.5)
[2018-07-19] MEDS: MIDAZOLAM HCL 5 MG/5 ML VIAL ONE ×2 (07:40→07:43)
[2018-07-19 08:08] LABS: HEPATITIS A AB, IgM Negative (Negative); HEPATITIS B CORE AB, IgM Negative (Negative); HEPATITIS B SURFACE AG Negative (Negative)
[2018-07-19] MEDS: AMIODARONE HCL 200 MG TABLET PO SCH (09:00)
[2018-07-19] MEDS: ATORVASTATIN 20 MG TABLET PO SCH (09:00)
[2018-07-19] MEDS: NEPHROVITE, (FOLIC ACID/VITAMIN B COMP W-C 1 TAB) PO SCH (09:00)
[2018-07-19] MEDS: FAMOTIDINE 20 MG TABLET PO SCH (09:00)
[2018-07-19] MEDS: ASPIRIN 81 MG TABLET(ECOTRIN) PO SCH (09:00)
[2018-07-19] MEDS: METOPROLOL SUCCINATE 25 MG TAB.SR.24H (TOPROL XL) PO SCH (09:00)
[2018-07-19 10:46] LABS: FERRITIN 1248 ng/mL (30-400)
[2018-07-19 12:19] VITALS: BP_SYST 132
[2018-07-19] MEDS: INSULIN REGULAR, HUMAN 100 UNITS/ML, 10 ML VIAL (humuLIN R) SUBCUT PRN (12:59)
[2018-07-19 15:07] VITALS: BP_SYST 94
== END 2018-07-19 18:50 | disposition home health service (06) | DRG 377 ==
LOC: SED 19:23 → STU 20:55 → SMU 21:30
PROVIDERS: ADMIT Preventive Medicine Preventive Medicine/Occupational Environmental Medicine; ATTEND Preventive Medicine Preventive Medicine/Occupational Environmental Medicine
PROC: 30233N1 Transfusion of Nonautologous Red Blood Cells into Peripheral Vein, Percutaneous Approach (ICD-10-PCS; 2018-07-14)
PROC: 5A1D70Z Performance of Urinary Filtration, Intermittent, Less than 6 Hours Per Day (ICD-10-PCS; 2018-07-15)
PROC: 5A1D70Z Performance of Urinary Filtration, Intermittent, Less than 6 Hours Per Day (ICD-10-PCS; 2018-07-17)
PROC: 0DB68ZX Excision of Stomach, Via Natural or Artificial Opening Endoscopic, Diagnostic (ICD-10-PCS; 2018-07-19)
PROC: 0DJD8ZZ Inspection of Lower Intestinal Tract, Via Natural or Artificial Opening Endoscopic (ICD-10-PCS; 2018-07-19)
PROC: 5A1D70Z Performance of Urinary Filtration, Intermittent, Less than 6 Hours Per Day (ICD-10-PCS; 2018-07-19)
PROC: 0DB98ZX Excision of Duodenum, Via Natural or Artificial Opening Endoscopic, Diagnostic (ICD-10-PCS; principal; 2018-07-19 07:30)
PROC: 0DB58ZX Excision of Esophagus, Via Natural or Artificial Opening Endoscopic, Diagnostic (ICD-10-PCS; 2018-07-19 07:30)
DX: K29.71 Gastritis, unspecified, with bleeding (principal); E43 Unspecified severe protein-calorie malnutrition; G92 Toxic encephalopathy; N18.6 End stage renal disease; J96.90 Respiratory failure, unspecified, unspecified whether with hypoxia or hypercapnia; E87.1 Hypo-osmolality and hyponatremia; I13.2 Hypertensive heart and chronic kidney disease with heart failure and with stage 5 chronic kidney disease, or end stage renal disease; D53.9 Nutritional anemia, unspecified; D46.9 Myelodysplastic syndrome, unspecified; E11.22 Type 2 diabetes mellitus with diabetic chronic kidney disease; E11.65 Type 2 diabetes mellitus with hyperglycemia; E78.5 Hyperlipidemia, unspecified; E83.42 Hypomagnesemia; D63.8 Anemia in other chronic diseases classified elsewhere; I25.10 Atherosclerotic heart disease of native coronary artery without angina pectoris; I50.9 Heart failure, unspecified; K22.70 Barrett's esophagus without dysplasia; K44.9 Diaphragmatic hernia without obstruction or gangrene; T50.995A Adverse effect of other drugs, medicaments and biological substances, initial encounter; K64.8 Other hemorrhoids; E80.6 Other disorders of bilirubin metabolism; Z79.82 Long term (current) use of aspirin; Z85.038 Personal history of other malignant neoplasm of large intestine; Z85.51 Personal history of malignant neoplasm of bladder; Z85.528 Personal history of other malignant neoplasm of kidney; Z87.891 Personal history of nicotine dependence; Z95.1 Presence of aortocoronary bypass graft; Z99.2 Dependence on renal dialysis; Z68.25 Body mass index [BMI] 25.0-25.9, adult; Z79.899 Other long term (current) drug therapy; Y92.9 Unspecified place or not applicable
CPT/HCPCS: 36415; 43239; 45378; 71045; 80048; 80053; 80061; 80074; 82272; 82607; 82728; 82962; 83036; 83540-TC; 83550-TC; 83735-TC; 83880; 84100-TC; 84484; 85025; 85384-TC; 85610-TC; 85730-TC; 86886; 86900; 86901; 86920; 87081; 88305; 88312; 88313; 90935; 90937; 93005; 93306; 96360; 97112-GP; 97530-GP; 99285; G0378; J0885; J1815; J2060; J2175; J2250; J7030; J7040; P9021

== ENCOUNTER 2018-07-24 02:11 | Emergency (ER) | payer OTHER, MEDICARE ==
[~2018-07-24] VITALS: Ht 160 cm; Wt 67.1 kg
[~2018-07-24 02:11] MED LIST changes: +APIX2.5T PO
[2018-07-24 02:15] VITALS: BP_SYST 171
[2018-07-24] MEDS ORDERED: BACITRACIN 1 GM OINT TP ONE (03:40)
[2018-07-24 04:37] VITALS: BP_SYST 171
== END 2018-07-24 04:37 | disposition home or self-care (01) ==
LOC: SED 02:11
DX: S70.01XA Contusion of right hip, initial encounter (principal); S50.01XA Contusion of right elbow, initial encounter; I12.9 Hypertensive chronic kidney disease with stage 1 through stage 4 chronic kidney disease, or unspecified chronic kidney disease; E11.22 Type 2 diabetes mellitus with diabetic chronic kidney disease; N18.9 Chronic kidney disease, unspecified; Z85.038 Personal history of other malignant neoplasm of large intestine; Z85.51 Personal history of malignant neoplasm of bladder; Z85.528 Personal history of other malignant neoplasm of kidney; Z98.2 Presence of cerebrospinal fluid drainage device; Z79.899 Other long term (current) drug therapy; W19.XXXA Unspecified fall, initial encounter; Y93.89 Activity, other specified; Y92.89 Other specified places as the place of occurrence of the external cause; Y99.8 Other external cause status
CPT/HCPCS: 73502; 99283

== ENCOUNTER 2018-09-22 11:52 | Emergency (ER) | payer OTHER, MEDICARE ==
[~2018-09-22] VITALS: Ht 170.2 cm; Wt 65.8 kg
[2018-09-22 11:59] VITALS: BP_SYST 150
[2018-09-22 12:39] LABS: BASOPHILS % (AUTO) 0.9 % (0.0-2.0); EOSINOPHILS # (AUTO) 0.1 K/uL (0.0-0.4); EOSINOPHILS % (AUTO) 1.1 % (0.0-4.0); HEMOGLOBIN 11.8 g/dL (14.0-18.0); LYMPHOCYTES # (AUTO) 0.8 K/uL (1.0-5.5); LYMPHOCYTES % (AUTO) 17.4 % (20.5-51.5); MEAN CORPUSCULAR HEMOGLOBIN 30 pg (27-31); MEAN CORPUSCULAR HGB CONC 32 % (32-36); MEAN CORPUSCULAR VOLUME 96 fL (79.0-98.0); MONOCYTES # (AUTO) 0.7 K/uL (0.0-1.0); NEUTROPHILS % (AUTO) 65.6 % (40.0-70.0); PLATELET COUNT (AUTO) 178 K/uL (130-430); RED BLOOD CELL COUNT(AUTO) 3.87 MIL/uL (4.2-6.2); RED CELL DISTRIBUTION WIDTH 18.7 % (9.0-15.0); WHITE BLOOD COUNT (AUTO) 4.6 K/uL (4.8-10.8)
[2018-09-22 12:54] LABS: ANION GAP 4 (5-15); CALCIUM 9.4 mg/dL (8.4-11.0); CHLORIDE 103 mmol/L (98-107); CREATININE 4.93 mg/dL (0.55-1.30); GLUCOSE 126 mg/dL (70-99); POTASSIUM 4.7 mmol/L (3.5-5.1); SODIUM SERUM 135 mmol/L (136-145); UREA NITROGEN, BLOOD 25 mg/dL (8-21)
[2018-09-22 12:59] LABS: ALANINE AMINOTRANSFERASE 27 U/L (12-78); ALBUMIN 2.4 g/dL (3.4-4.8); ASPARTATE AMINOTRANSFERASE 32 U/L (10-37); C-REACTIVE PROTEIN QUANT 3.2 mg/dL (0-0.5); INR 1.2 (0.80-1.20); PROTHROMBIN TIME 12.1 SECS (9.5-12.5); TOTAL BILIRUBIN 0.6 mg/dL (0.0-1.0)
[2018-09-22 15:13] VITALS: BP_SYST 147
== END 2018-09-22 15:09 | disposition home or self-care (01) ==
LOC: SED 11:52
DX: S40.022A Contusion of left upper arm, initial encounter (principal); E11.9 Type 2 diabetes mellitus without complications; I10 Essential (primary) hypertension; Z99.2 Dependence on renal dialysis; Z79.82 Long term (current) use of aspirin; Z79.899 Other long term (current) drug therapy; X58.XXXA Exposure to other specified factors, initial encounter; Y93.89 Activity, other specified; Y92.89 Other specified places as the place of occurrence of the external cause; Y99.8 Other external cause status
CPT/HCPCS: 36415; 71045; 80053; 83605; 85025; 85610-TC; 85730-TC; 86140; 99284

== ENCOUNTER 2018-10-29 21:27 | Inpatient (IN) | payer OTHER, MEDICARE ==
[~2018-10-29] VITALS: Ht 167.6 cm; Wt 51.7 kg
[2018-10-29 21:27] VITALS: BP_SYST 186
--- NOTE | 2018-10-29 21:27 | NUR ---
Note undone in EDM - 10/29/18 at 2312 by LESLEE Pt BIB BLS, placed to ER bed 04, to gown, to shoe lacer. Pt arrives alert, responsive with garbled speech, as baseline for pt. Pt noted to have abdominal and intercostal retractions, airway patent, rhonchi/rales generalized to lung santillan. O2 at 6LPM/SFM upon arrival with SPO2 97%. Albuterol tx given in route. Per BLS, home care nurse found pt with eyes closed, difficulty to arouse and trouble breathing. ALS was on scene and placed a 20 GA PIV to Left wrist. Accucheck 134 mg/dL.
--- NOTE | 2018-10-29 21:27 | NUR ---
Pt BIB BLS, placed to ER bed 04, to gown, to electronic device monitor. Pt arrives alert, responsive with garbled speech, as baseline for pt. Pt noted to have abdominal and intercostal retractions, airway patent, rhonchi/rales generalized to lung santillan. O2 at 6LPM/SFM upon arrival with SPO2 97%. Albuterol tx given in route. Per BLS, home care nurse found pt with eyes closed, difficulty to arouse and trouble breathing. ALS was on scene and placed a 20 GA PIV to Right wrist. Accucheck 134 mg/dL.
--- NOTE | 2018-10-29 21:50 | NUR ---
Dr. Anderson at bedside to assess pt.
[2018-10-29] MEDS ORDERED: IPRATROPIUM/ALBUTEROL SULFATE 3 ML AMPUL.NEB (DUONEB) INH ONE (22:00)
[2018-10-29] MEDS ORDERED: methylPREDNISolone SOD SUCC/PF 62.5 MG/ML VIAL IVP ONE (22:00)
[2018-10-29] MEDS ORDERED: IPRATROPIUM/ALBUTEROL SULFATE 3 ML AMPUL.NEB (DUONEB) ONE (22:01)
--- NOTE | 2018-10-29 22:01 | NUR ---
Lab at bedside.
--- NOTE | 2018-10-29 22:04 | NUR ---
X-ray at bedside.
--- NOTE | 2018-10-29 22:05 | NUR ---
RT at bedside. Jourdan Tx in progress. SPO2 98%.
--- NOTE | 2018-10-29 22:10 | NUR ---
SFM removed per RT in order to obtain an ABG.
--- NOTE | 2018-10-29 22:21 | NUR ---
RT returns to bedside to perform ABG. SPO2 89% RA. Persistant abdominal and intercostal retractions noted, scattered rhonchi. Pt alert, responsive, garbled speech (as per baseline).
[2018-10-29 22:22] LABS: BASOPHILS % (AUTO) 0.5 % (0.0-2.0); EOSINOPHILS # (AUTO) 0.1 K/uL (0.0-0.4); EOSINOPHILS % (AUTO) 0.9 % (0.0-4.0); HEMATOCRIT 38.2 % (36-54); HEMOGLOBIN 12.1 g/dL (14.0-18.0); LYMPHOCYTES # (AUTO) 1.5 K/uL (1.0-5.5); LYMPHOCYTES % (AUTO) 24.8 % (20.5-51.5); MEAN CORPUSCULAR HEMOGLOBIN 31 pg (27-31); MEAN CORPUSCULAR HGB CONC 32 % (32-36); MEAN CORPUSCULAR VOLUME 97 fL (79.0-98.0); MONOCYTES # (AUTO) 0.6 K/uL (0.0-1.0); MONOCYTES % (AUTO) 9.2 % (1.7-9.3); NEUTROPHILS # (AUTO) 3.9 K/uL (1.8-7.7); NEUTROPHILS % (AUTO) 64.6 % (40.0-70.0); PLATELET COUNT (AUTO) 139 K/uL (130-430); RED BLOOD CELL COUNT(AUTO) 3.95 MIL/uL (4.2-6.2); RED CELL DISTRIBUTION WIDTH 23.4 % (9.0-15.0)
[2018-10-29 22:37] LABS: ANION GAP 8 (5-15); CALCIUM 9.4 mg/dL (8.4-11.0); CHLORIDE 108 mmol/L (98-107); CREATININE 4.72 mg/dL (0.55-1.30); GLUCOSE 119 mg/dL (70-99); POTASSIUM 3.6 mmol/L (3.5-5.1); SODIUM SERUM 150 mmol/L (136-145); UREA NITROGEN, BLOOD 21 mg/dL (8-21)
--- NOTE | 2018-10-29 22:45 | NUR ---
RT at bedside to place Oxymizer at 3 LPM/NC. SPO2 at 97%. RR 24 with mild improvement noted to respirations. Mild rales noted to lung santillan.
--- NOTE | 2018-10-29 22:50 | NUR ---
Pt.'s (Linda Saavedra, ) calls to check on pt. Updated on pt status and she requests that we call her back to give update on his POC.
[2018-10-29 22:52] LABS: ALANINE AMINOTRANSFERASE 21 U/L (12-78); ALBUMIN 2.3 g/dL (3.4-4.8); ASPARTATE AMINOTRANSFERASE 30 U/L (10-37); TOTAL BILIRUBIN 0.9 mg/dL (0.0-1.0)
--- NOTE | 2018-10-29 23:40 | NUR ---
Pt had small BM. Pt cleaned. Redness to inner gluteal folds. Blue pads placed beneath pt. Pt covered with warm blanket. VSS, NAD. Improvement to respirations noted.
--- NOTE | 2018-10-29 23:55 | NUR ---
# 16 FR Epsp catheter with use of sterile technique. Immediate return of 10 cc cloudy yellow urine noted. Bedside drainage bag placed below level of bladder. Urine sample collected and sent to lab. Pt tolerated procedure fair. Patient unable to toilet self.
[2018-10-30] VITALS (8 sets, daily range): BP systolic 140–165
--- NOTE | 2018-10-30 | NUR ---
Dr. Cancino at bedside.
[2018-10-30 00:21] LABS: BILIRUBIN,URINE NEGATIVE (NEGATIVE); BLOOD, URINE 2+ (NEGATIVE); CLARITY/URINE CLEAR (CLEAR); COLOR,URINE YELLOW (YELLOW); GLUCOSE,URINE TRACE (NEGATIVE); KETONES,URINE TRACE (NEGATIVE); LEUKOCYTE ESTERASE ,URINE 2+ (NEGATIVE); NITRITE, URINE NEGATIVE (NEGATIVE); PH,URINE 8.5 (5.0-8.0); PROTEIN URINE 3+ (NEGATIVE)
[2018-10-30 00:29] LABS: WBC,URINE 80-100 /HPF (0-3)
[2018-10-30 00:30] LABS: BACTERIA,URINE MODERATE /HPF (None Seen)
[2018-10-30] MEDS ORDERED: cloNIDine HCL 0.1 MG TABLET PO PRN (00:30)
--- NOTE | 2018-10-30 00:30 | NUR ---
Pt alert, responsive, even and non-labored respirations, scattered wheezing to BBS, VSS. Pt remains on O2 at 3LPM/Oxymizer with SPO2 98%.
[2018-10-30] MEDS ORDERED: DEXTROSE 50% JECT 50 ML DISP.SYRIN IVP PRN (00:45)
--- NOTE | 2018-10-30 00:50 | NUR ---
Patient will be admitted to care of Dr. Cancino. Admitted to Tele unit. Will go to room 120B. Belongings list completed. Summary report printed. Report will be given at bedside.
[2018-10-30] MEDS ORDERED: cefTRIAXone 1 GM IVPB PREMIX 50 ML IV ONE ×2 (01:00→02:27)
[2018-10-30] MEDS ORDERED: NITROGLYCERIN 1 INCH (GM) OINT. TP ONE (01:00)
[2018-10-30] MEDS ORDERED: FUROSEMIDE 40 MG/4 ML VIAL IVP ONE (01:00)
[2018-10-30] MEDS ORDERED: FUROSEMIDE 100 MG/10 ML VIAL IVP ONE (01:00)
--- NOTE | 2018-10-30 01:05 | NUR ---
ADMISSION NOTE Received patient from ER via jorge alberto, received report from Troy GUZMAN. Patient admitted with diagnosis of ALOC. Patient oriented to hospital routine, call light, toileting and safety-patient.
--- NOTE | 2018-10-30 02:10 | NUR ---
Contacted pt.'s , Linda Saavedra to update on status. No answer, message left.
--- NOTE | 2018-10-30 03:44 | NUR ---
RESTING Patient is resting at this time. No s/s of acute distress. Breathing even and unlabored on 3L oxymizer. Safety and fall precautions in place. Bed alarm on. Call light with patient but unable due to condition. Room near nurses station. Will monitor.
--- NOTE | 2018-10-30 05:56 | NUR ---
CONSULTATION PAGED/CALLED Reason for Consultation: CHF Person Who was Notified: PAMELA Consulting Physician: DR. DURBIN; DR. STAPLETON AUTOMOTIVE SALES ASSOCIATE Ordering Physician: DR. ELENA
--- NOTE | 2018-10-30 06:01 | NUR ---
CONSULTATION PAGED/CALLED Reason for Consultation: FLUID OVERLOAD Person Who was Notified: MARLEN Consulting Physician: DR. SIMTH; DR. DENNY INFORMATION SERVICES ASSISTANT Ordering Physician: DR. ELENA
[2018-10-30] MEDS: INSULIN REGULAR, HUMAN 100 UNITS/ML, 10 ML VIAL (humuLIN R) SUBCUT PRN ×2 (06:36→21:27)
--- NOTE | 2018-10-30 06:55 | NUR ---
CLOSING NOTES All needs met throughout shift. Safety precautions maintained and in place. Will endorse care to day shift nurse.
--- NOTE | 2018-10-30 07:28 | NUR ---
A/Ox1.SB on monitor. IV on R wrist, intact and patent. Instructed on safety. Call light in place, bed locked at the lowest position, will continue to monitor.
--- NOTE | 2018-10-30 07:30 | NUR ---
Nutrition Update Zaid Scale 13 noted. Pt admitted for ALOC Diet: Cardiac low CHOL low Fat 2gm Na BMI: 19 kg/m2 RD to follow per nutrition care standards.
[2018-10-30 07:42] LABS: BASOPHILS % (AUTO) 0.1 % (0.0-2.0); EOSINOPHILS % (AUTO) 0.1 % (0.0-4.0); HEMATOCRIT 32.9 % (36-54); HEMOGLOBIN 10.5 g/dL (14.0-18.0); LYMPHOCYTES # (AUTO) 0.1 K/uL (1.0-5.5); LYMPHOCYTES % (AUTO) 2.1 % (20.5-51.5); MEAN CORPUSCULAR HEMOGLOBIN 31 pg (27-31); MEAN CORPUSCULAR HGB CONC 32 % (32-36); MEAN CORPUSCULAR VOLUME 97 fL (79.0-98.0); MONOCYTES % (AUTO) 0.8 % (1.7-9.3); NEUTROPHILS # (AUTO) 5.8 K/uL (1.8-7.7); NEUTROPHILS % (AUTO) 96.9 % (40.0-70.0); PLATELET COUNT (AUTO) 143 K/uL (130-430); RED CELL DISTRIBUTION WIDTH 23.4 % (9.0-15.0)
[2018-10-30] MEDS: CALCIUM ACETATE 667 MG CAP PO SCH ×3 (08:00→18:10)
[2018-10-30 08:15] LABS: ALANINE AMINOTRANSFERASE 32 U/L (12-78); ALBUMIN 2.1 g/dL (3.4-4.8); ANION GAP 5 (5-15); ASPARTATE AMINOTRANSFERASE 39 U/L (10-37); CALCIUM 9.7 mg/dL (8.4-11.0); CHLORIDE 106 mmol/L (98-107); CHOLESTEROL 87 mg/dL (<200); CREATININE 5.17 mg/dL (0.55-1.30); GLUCOSE 253 mg/dL (70-99); HDL CHOLESTEROL 36 mg/dL (>45); LDL CHOLESTEROL 42 mg/dL (<100); POTASSIUM 4.1 mmol/L (3.5-5.1); SODIUM SERUM 144 mmol/L (136-145); THYROID STIMULATING HORMONE 0.36 uIu/mL (0.34-4.82); TOTAL BILIRUBIN 0.6 mg/dL (0.0-1.0); TRIGLYCERIDES 43 mg/dL (30-150); UREA NITROGEN, BLOOD 29 mg/dL (8-21)
[2018-10-30] MEDS: FAMOTIDINE 20 MG TABLET PO SCH (09:00)
[2018-10-30] MEDS: AMIODARONE HCL 200 MG TABLET PO SCH (09:00)
[2018-10-30] MEDS: ATORVASTATIN 20 MG TABLET PO SCH (09:00)
[2018-10-30] MEDS: NEPHROVITE, (FOLIC ACID/VITAMIN B COMP W-C 1 TAB) PO SCH (09:00)
[2018-10-30] MEDS: ASPIRIN 81 MG TABLET(ECOTRIN) PO SCH (09:00)
[2018-10-30] MEDS: APIXABAN 2.5 MG TABLET PO SCH ×2 (09:00→21:25)
[2018-10-30] MEDS: METOPROLOL SUCCINATE 25 MG TAB.SR.24H (TOPROL XL) PO SCH (09:00)
--- NOTE | 2018-10-30 10:15 | NUR ---
DR. SALTER IS INFORMED ABOUT PATIENT HAD A 2D ECHO 3 MONTHS AGO. HE STATE THE PATIENT DOES NOT NEED 2D ECHO AT THIS TIME.
--- NOTE | 2018-10-30 11:10 | NUR ---
BLOOD SUGAR 216. WILL MONITOR HIS ORAL INTAKE.
--- NOTE | 2018-10-30 13:37 | NUR ---
patient ate minimally for lunch. He is resting, SR-SB on monitor, no signs of distress noted.
--- NOTE | 2018-10-30 14:30 | NUR ---
PATIENT HD BEGINS. NO SIGNS OF DISTRESS NOTED.
--- NOTE | 2018-10-30 16:45 | NUR ---
Blood sugar 185. No coverage needed/
--- NOTE | 2018-10-30 17:26 | NUR ---
HD completed. 2.0 L is removed. Will monitor for post HD status
--- NOTE | 2018-10-30 18:25 | NUR ---
PATIENT IS FED DINNER, TOLERATED WITHOUT DISTRESS
--- NOTE | 2018-10-30 19:45 | NUR ---
OPENING NOTES Received patient resting in bed. Patient A/O x1, verbalizes name only. Patient has no acute respiratory distress, 3 L oximizer. IV Right forearm 18g saline lock, and Right AC 20 g saline lock. Patient has HOB elevated, and call light within reach, bed alarm on, and bed at lowest position. Will continue to monitor.
--- NOTE | 2018-10-30 22:00 | NUR ---
Administered medications crushed with apple sauce. Patient tolerated well, no signs of aspiration. Blood glucose of 228, administered 2 units of insulin Humulin. Will continue to monitor for signs of hypoglycemia. Safety precautions in place.
--- NOTE | 2018-10-31 | NUR ---
Patient resting in bed, no acute respiratory distress observed, 3L oximizer. Epps catheter draining by gravity, clear yellow urine noted. Will continue to monitor.
--- NOTE | 2018-10-31 02:37 | NUR ---
Patient is sleeping, eyes closed. No acute respiratory distress observed. Safety precautions in place. Will continue to monitor.
--- NOTE | 2018-10-31 04:00 | NUR ---
MRSA cultures collected from both nares. Patient is resting in bed. No signs of acute respiratory distress observed, 3L oximizer. Call light within reach, bed alarm on, and bed at lowest position. Will continue to monitor.
--- NOTE | 2018-10-31 06:46 | NUR ---
CLOSING NOTES Patient is resting in bed. No acute respiratory distress observed, 3L oximizer, HOB elevated. Epps catheter draining with gravity, clear yellow urine. Patient sacral dressing, c/d/i. IV Right AC 20g, dressings c/d/i, IV Right FA 18g patent, dressings c/d/i. Left AV shunt, bruit and thrill noted. Call light within reach, bed alarm on, and bed at lowest position. Will endorse care to oncoming shift.
--- NOTE | 2018-10-31 07:26 | NUR ---
A/Ox1.SB on monitor. IV on R wrist and Right AC, intact and patent. Instructed on safety. Call light in place, bed locked at the lowest position, will continue to monitor.
[2018-10-31 08:00] VITALS: BP_SYST 143
[2018-10-31] MEDS: ATORVASTATIN 20 MG TABLET PO SCH (08:42)
[2018-10-31] MEDS: NEPHROVITE, (FOLIC ACID/VITAMIN B COMP W-C 1 TAB) PO SCH (08:42)
[2018-10-31] MEDS: CALCIUM ACETATE 667 MG CAP PO SCH ×4 (08:42→18:50)
[2018-10-31] MEDS: FAMOTIDINE 20 MG TABLET PO SCH (08:42)
[2018-10-31] MEDS: ASPIRIN 81 MG TABLET(ECOTRIN) PO SCH (09:00)
[2018-10-31] MEDS: APIXABAN 2.5 MG TABLET PO SCH ×2 (09:00→21:43)
[2018-10-31] MEDS: METOPROLOL SUCCINATE 25 MG TAB.SR.24H (TOPROL XL) PO SCH (09:00)
[2018-10-31] MEDS: AMIODARONE HCL 200 MG TABLET PO SCH (09:00)
--- NOTE | 2018-10-31 09:48 | NUR ---
Patient is resting, no signs of distress noted.
--- NOTE | 2018-10-31 11:25 | NUR ---
Patient blood sugar 246.
[2018-10-31] MEDS: INSULIN REGULAR, HUMAN 100 UNITS/ML, 10 ML VIAL (humuLIN R) SUBCUT PRN ×2 (12:56→18:15)
--- NOTE | 2018-10-31 13:00 | NUR ---
patient is fed lunch, tolerated without distress.
--- NOTE | 2018-10-31 14:20 | NUR ---
Patient's at bedside. POC is explained.
--- NOTE | 2018-10-31 16:00 | NUR ---
Patient is resting, no signs of distress noted.
[2018-10-31 17:17] VITALS: BP_SYST 111
--- NOTE | 2018-10-31 17:23 | NUR ---
Blood sugar 216.
--- NOTE | 2018-10-31 19:47 | NUR ---
OPENING NOTES Received patient alert and able to verbalize name and no pain. Dialysis nurse at bedside, Left AV shunt. No signs of acute respiratory distress observed, 3 L oximizer. Patient has IV right upper arm 20g, Right forearm 22g, Saline Lock, dressings both c/d/i. Epps catheter draining by gravity, clear yellow urine. No kinks noted. Call light within reach, bed alarm on, and bed at lowest position. Will continue to monitor.
[2018-10-31 20:03] VITALS: BP_SYST 117
--- NOTE | 2018-10-31 22:00 | NUR ---
Perineal care provided, linens changed, wound care performed and optiform applied. Patient in bed with no acute respiratory distress observed. Crushed PO medications given, patient tolerated it well. ELEMENTARY SPANISH TEACHER at bedside feeding purreed diet to patient. Will continue to monitor.
--- NOTE | 2018-11-01 | NUR ---
Patient asleep with eyes closed. No acute signs of respiratory distress observed, 3L oximizer. Will continue to monitor.
--- NOTE | 2018-11-01 02:00 | NUR ---
Patient asleep with eyes closed. No acute respiratory distress observed. Epps catheter draining with gravity, clear, yellow urine. Will continue to monitor.
[2018-11-01 02:45] VITALS: BP_SYST 145
--- NOTE | 2018-11-01 04:10 | NUR ---
Patient resting in bed, eyes closed. No acute respiratory distress observed. HOB elevated. Call light within reach, bed alarm on, and bed at lowest position. Will continue to monitor.
[2018-11-01 06:27] LABS: ALANINE AMINOTRANSFERASE 41 U/L (12-78); ALBUMIN 2.1 g/dL (3.4-4.8); ASPARTATE AMINOTRANSFERASE 30 U/L (10-37); CALCIUM 9.2 mg/dL (8.4-11.0); CHLORIDE 103 mmol/L (98-107); CREATININE 3.13 mg/dL (0.55-1.30); GLUCOSE 211 mg/dL (70-99); PHOSPHORUS 2.7 mg/dL (2.7-4.5); POTASSIUM 3.8 mmol/L (3.5-5.1); SODIUM SERUM 138 mmol/L (136-145); TOTAL BILIRUBIN 0.5 mg/dL (0.0-1.0); UREA NITROGEN, BLOOD 23 mg/dL (8-21)
[2018-11-01 06:31] LABS: ANION GAP < 3 (5-15)
[2018-11-01 06:35] LABS: BASOPHILS % (AUTO) 0.2 % (0.0-2.0); EOSINOPHILS % (AUTO) 0.7 % (0.0-4.0); HEMATOCRIT 32.9 % (36-54); HEMOGLOBIN 10.5 g/dL (14.0-18.0); LYMPHOCYTES # (AUTO) 0.5 K/uL (1.0-5.5); MEAN CORPUSCULAR HEMOGLOBIN 31 pg (27-31); MEAN CORPUSCULAR HGB CONC 32 % (32-36); MEAN CORPUSCULAR VOLUME 97 fL (79.0-98.0); MONOCYTES # (AUTO) 0.3 K/uL (0.0-1.0); MONOCYTES % (AUTO) 7.9 % (1.7-9.3); NEUTROPHILS # (AUTO) 3.4 K/uL (1.8-7.7); NEUTROPHILS % (AUTO) 79.2 % (40.0-70.0); PLATELET COUNT (AUTO) 145 K/uL (130-430); RED BLOOD CELL COUNT(AUTO) 3.41 MIL/uL (4.2-6.2); RED CELL DISTRIBUTION WIDTH 22.9 % (9.0-15.0)
[2018-11-01 07:16] LABS: WHITE BLOOD COUNT (AUTO) 4.3 K/uL (4.8-10.8)
--- NOTE | 2018-11-01 07:31 | NUR ---
CLOSING NOTES Patient resting in bed, no acute respiratory distress observed at this time, 3L oximizer. IV Right Forearm 20g, dressing c/d/i, IV right Upper arm 20 g, patent, dressings c/d/i. Right AV shunt, bruit and thrill noted. Epps catheter draining by gravity, clear yellow urine, no kinks noted. All needs met throughout shift. Call light within reach, bed alarm on, and bed at lowest position. Will endorse care to the oncoming shift.
[2018-11-01 07:33] VITALS: BP_SYST 146
--- NOTE | 2018-11-01 07:45 | NUR ---
Neuro Patient is awake answer short simple question, denies any pain no sign of acute respiratory distress, 3 liter with Oxymizer oxygen saturation 100 % aspiration precaution kept semi fowlers ,repositioned, will monitor.
--- NOTE | 2018-11-01 08:30 | NUR ---
Assisted in feeding aspiration precaution tolerated 100% of pureed diet, due meds given .
[2018-11-01] MEDS: NEPHROVITE, (FOLIC ACID/VITAMIN B COMP W-C 1 TAB) PO SCH (08:31)
[2018-11-01] MEDS: ATORVASTATIN 20 MG TABLET PO SCH (08:31)
[2018-11-01] MEDS: CALCIUM ACETATE 667 MG CAP PO SCH ×3 (08:31→17:19)
[2018-11-01] MEDS: ASPIRIN 81 MG TABLET(ECOTRIN) PO SCH (08:31)
[2018-11-01] MEDS: FAMOTIDINE 20 MG TABLET PO SCH (08:31)
[2018-11-01] MEDS: METOPROLOL SUCCINATE 25 MG TAB.SR.24H (TOPROL XL) PO SCH (08:32)
[2018-11-01] MEDS: APIXABAN 2.5 MG TABLET PO SCH ×2 (08:32→20:26)
[2018-11-01] MEDS: AMIODARONE HCL 200 MG TABLET PO SCH (08:34)
--- NOTE | 2018-11-01 08:45 | NUR ---
Skin care /comfort Complete TSB done had a bowel movement soft stool , sacral dressing changed as recorded in the flow sheet, repositioned.
--- NOTE | 2018-11-01 10:45 | NUR ---
Comfort/skin care Patient had a bowel movement semi loose stool brown color moderate amount, perineal care given sacral dressing intact wash with soap/water skin cream barrier applied , repositioned skin/aspiration precaution .
--- NOTE | 2018-11-01 11:53 | NUR ---
Dr. Cancino informed regarding semi loose x2 stool of patient, fed and tolerates well.
[2018-11-01] MEDS ORDERED: LOPERAMIDE HCL 2 MG CAPSULE PO PRN (13:00)
[2018-11-01] MEDS ORDERED: LOPERAMIDE HCL 2 MG CAPSULE PO ONE (13:00)
--- NOTE | 2018-11-01 14:00 | NUR ---
PHYSICAL THERAPY ORDER RECEIVED AND THE CHART WAS REVIEWED. UNABLE TO PERFORM THE EVALUATION BECAUSE OF THE PATIENT BEING INCONTINENT OF BOWEL. NURSE INFORMED AND WILL ASSIST THE PATIENT. PLAN: WILL ATTEMPT THE EVALUATION TOMORROW BECAUSE OF TIME RESTRAINTS.
[2018-11-01 16:41] VITALS: BP_SYST 139
--- NOTE | 2018-11-01 16:43 | NUR ---
Patient repositioned by staff every 2 hours with pillow support.
--- NOTE | 2018-11-01 19:54 | NUR ---
OPENING NOTES Received patient awake and verbalizing name, no acute respiratory distress observed, 3L oximizer. IV on Right upper arm 20 g, patent, IV Right wrist 22 g, patent, saline lock for both, dressings c/d/i. Left arm AV shunt, bruit and thrill noted. Call light within reach, bed alarm on, and bed at lowest position. Will continue to monitor.
[2018-11-01 20:00] VITALS: BP_SYST 150
[2018-11-01] MEDS: INSULIN REGULAR, HUMAN 100 UNITS/ML, 10 ML VIAL (humuLIN R) SUBCUT PRN (20:32)
[2018-11-01] MEDS: IPRATROPIUM/ALBUTEROL SULFATE 3 ML AMPUL.NEB (DUONEB) INH PRN (21:38)
--- NOTE | 2018-11-01 22:00 | NUR ---
Patient resting in bed, eyes closed. Awakens when name is called. No respiratory distress observed, 3L oximizer. RT was called for respiratory care. Patient repositioned and will continue to monitor.
[2018-11-02] VITALS (7 sets, daily range): BP systolic 108–156
--- NOTE | 2018-11-02 00:45 | NUR ---
Patient resting in bed with HOB elevated. No acute respiratory distress observed, 3L oximizer. Safety precautions in place. Will continue to monitor.
--- NOTE | 2018-11-02 02:04 | NUR ---
Patient is asleep with eyes closed. No signs of acute respiratory distress observed. Patient awakens when name is called. Safety precautions in place. Will continue to monitor.
--- NOTE | 2018-11-02 02:08 | NUR ---
Patient is resting in bed, eyes closed. No acute respiratory distress observed. Safety precautions in place. Will continue to monitor.
--- NOTE | 2018-11-02 04:41 | NUR ---
NO CHANGE IN CONDITION SINCE LAST ROUND.
--- NOTE | 2018-11-02 06:41 | NUR ---
CLOSING NOTES Patient is asleep, eyes closed, wakes up when name is called. No acute respiratory distress observed, 3L oximizer. Blood sugar: 174, no insulin coverage given per sliding scale. IV Right UA and R wrist patent, dressings c/d/i. Dressings changed, wound care performed, optifoam dressings applied. Bed alarm on, bed at lowest position and call light within reach. Will endorse care to the oncoming shift.
--- NOTE | 2018-11-02 07:30 | NUR ---
Hemodialysis started, patient awake answer simple question question no sign of acute distress, assisted in feeding tolerates well aspiration precaution , needs attended.
[2018-11-02] MEDS: CALCIUM ACETATE 667 MG CAP PO SCH ×3 (08:33→16:57)
[2018-11-02] MEDS: NEPHROVITE, (FOLIC ACID/VITAMIN B COMP W-C 1 TAB) PO SCH (08:33)
[2018-11-02] MEDS: ASPIRIN 81 MG TABLET(ECOTRIN) PO SCH (08:33)
[2018-11-02] MEDS: ATORVASTATIN 20 MG TABLET PO SCH (08:33)
[2018-11-02] MEDS: FAMOTIDINE 20 MG TABLET PO SCH (08:33)
[2018-11-02] MEDS: APIXABAN 2.5 MG TABLET PO SCH ×2 (08:34→20:14)
--- NOTE | 2018-11-02 10:11 | NUR ---
Discharge Planning: DCP faxed pt referral to [facility] (f [phone] p [phone]) DCP to follow up. Addendum: 11/02/18 at 1538 by Leyla Carrizales DP Per Uriel patient will resume with [facility] ( [phone] p [phone]) Addendum: 11/02/18 at 1542 by Leyla Carrizales DP Patient nurse made aware.
--- NOTE | 2018-11-02 10:30 | NUR ---
Hemodialysis completed vitals sign completed, patient awake no sign of acute distress.
[2018-11-02] MEDS: METOPROLOL SUCCINATE 25 MG TAB.SR.24H (TOPROL XL) PO SCH (11:18)
[2018-11-02] MEDS: AMIODARONE HCL 200 MG TABLET PO SCH (11:19)
--- NOTE | 2018-11-02 11:30 | NUR ---
Patient is more awake/alert no sign of acute distress, look tired after HD vitals sign stable
--- NOTE | 2018-11-02 14:31 | NUR ---
Patient repositioned by staff every 2 hours with pillow support.
--- NOTE | 2018-11-02 14:40 | NUR ---
Skin /wound care completed , documentation in the flow sheet Addendum: 11/02/18 at 1459 by Rafaela Calix RN Repositioned patient off load heel in between leg supported by pillow and back
[2018-11-02] MEDS: BALSAM PERU/CASTOR OIL 60 GM OINT...G. TP SCH (14:41)
--- NOTE | 2018-11-02 14:41 | NUR ---
WOUND EVALUATION: Wound Consult received from Dr. Cancino. Thank you, Dr. Cancino, for the consult. Patient received in a Zofia Bed, awake, non-verbal, non-responsive to verbal commands. Patient is unable to turn in bed independently. Zaid Score is a 14. Past Medical History: Diabetes Mellitus Type 2, End Stage Renal Disease, Hemodialysis Wednesday/Wednesday/Wednesday, Hypertension, Paroxysmal Atrial Fibrillation, hyperlipidemia, history colon cancer. Recent Labs: WBC 4.3, RBC 3.41, hemoglobin 10.5, hematocrit 32.9, BUN 23, creatinine 3.13, glucose 211, albumin 2.1, D-dimer 923. Microbiology: Blood culture results �2 in progress. Urine culture results in progress. MRSA screen results negative. WBC smear negative. Stool culture Shiga Toxin 1 and 2 results in progress. Intrinsic factors that delay wound healing: Diabetes mellitus, end-stage renal disease, hypoalbuminemia. Extrinsic factors that delay wound healing: Immobility. Wound Assessment: 1. Right sacral area: Stage III pressure ulcer, present on admission. Wound bed has 60 red tissue, 30% yellow tissue, 10% dark discolored tissue in the center. No odor, no drainage. June-wound intact. Surrounding tissue has dark discolored and dry, flaky skin. Measures 3.5 cm x 4.0 cm. Recommend: Cleanse wound with normal saline. Apply moisture barrier cream to june-wound. Cover with Sacral foam dressing. Perform wound care daily, and as needed for dressing soiling or dislodgement. 2. Left sacral area: Healing stage II pressure ulcer, present on admission. Wound bed has 100% pink tissue. No odor, no drainage. June-wound intact. Surrounding tissue has dark discolored and dry, flaky skin. Measures 1.0 cm x 1.0 cm. Recommend: Cleanse wound with normal saline. Apply moisture barrier cream to wound and june-wound. Cover with same Sacral foam dressing as in Wound 1. Perform wound care daily, and as needed for dressing soiling or dislodgement. Also recommend: Reposition patient side to side only every 2 hours with pillow support, and off-load pressure areas with pillows for pressure re-distribution. Offload, elevate and float bilateral heels with one pillow lengthwise under each extremity at all times. Perform skin care and monitor skin integrity Q shift. Use moisture barrier cream on buttocks and other moisture susceptible areas QID and as needed for soiling.
--- NOTE | 2018-11-02 16:10 | NUR ---
Dr Cancino informed that amiodarone and metoprolol was not given today due to Bradycardia with new order carried out.
[2018-11-02] MEDS: INSULIN REGULAR, HUMAN 100 UNITS/ML, 10 ML VIAL (humuLIN R) SUBCUT PRN (17:02)
--- NOTE | 2018-11-02 18:45 | NUR ---
Assisted in feeding tolerates Pureed diet well aspiration precaution, needs attended.
--- NOTE | 2018-11-02 19:29 | NUR ---
PM SHIFT ASSESSMENT Received patient sitting up in bed, aox1, able to answer simple questions, on 3L Oxymizer, no sob noted, vital signs stable, SR on tele monitor, repositioned and turned with pillow support, oriented to use call light for nurse assistance, light within reach, fall and safety measures in place, will closely monitor.
--- NOTE | 2018-11-02 20:41 | NUR ---
MED PASS Patient awake, no sob noted, remains on 3L oxymizer, due medications administered, crushed and given with applesauce, patient tolerated well, aspiration precautions maintained, safety and fall precautions in place. Addendum: 11/02/18 at 2136 by Florencia Silvestre RN Blood sugar this pm of 166, no insulin coverage needed.
--- NOTE | 2018-11-02 22:01 | NUR ---
RN ROUNDS Patient resting quietly, in no distress, remains on 0n 02 3L Oxymizer, repositioned and turned with pillow support, bilateral heels offloaded with pillow support, fall and safety measures in place, will monitor.
--- NOTE | 2018-11-03 00:36 | NUR ---
RN ROUNDS Patient asleep, breathing even and unlabored, remains on 0n 02 3L Oxymizer, repositioned and turned with pillow support, bilateral heels offloaded with pillow support, fall and safety measures in place, will monitor.
[2018-11-03 00:47] VITALS: BP_SYST 149
--- NOTE | 2018-11-03 02:46 | NUR ---
RN ROUNDS Patient continues to sleep, breathing even and unlabored, remains on 0n 02 3L Oxymizer, repositioned and turned with pillow support, fall and safety measures in place, will monitor.
--- NOTE | 2018-11-03 04:39 | NUR ---
RN ROUNDS Patient resting quietly, respirations even and unlabored, remains on 0n 02 3L Oxymizer, repositioned and turned with pillow support, fall and safety measures in place, will monitor.
--- NOTE | 2018-11-03 06:33 | NUR ---
RN ROUNDS Patient resting quietly, respirations even and unlabored, remains on 0n 02 3L Oxymizer, blood sugar check this am of 132, no insulin coverage needed, hygiene care provided, repositioned and turned with pillow support, fall and safety measures maintained, will continue to monitor until report given to am nurse.
[2018-11-03 06:40] LABS: BASOPHILS % (AUTO) 0.1 % (0.0-2.0); EOSINOPHILS % (AUTO) 0.6 % (0.0-4.0); HEMATOCRIT 36.2 % (36-54); HEMOGLOBIN 11.5 g/dL (14.0-18.0); LYMPHOCYTES # (AUTO) 1.2 K/uL (1.0-5.5); LYMPHOCYTES % (AUTO) 15.8 % (20.5-51.5); MEAN CORPUSCULAR HEMOGLOBIN 31 pg (27-31); MEAN CORPUSCULAR HGB CONC 32 % (32-36); MEAN CORPUSCULAR VOLUME 97 fL (79.0-98.0); MONOCYTES # (AUTO) 0.9 K/uL (0.0-1.0); NEUTROPHILS # (AUTO) 5.5 K/uL (1.8-7.7); NEUTROPHILS % (AUTO) 71.5 % (40.0-70.0); PLATELET COUNT (AUTO) 131 K/uL (130-430); RED BLOOD CELL COUNT(AUTO) 3.74 MIL/uL (4.2-6.2); RED CELL DISTRIBUTION WIDTH 23.1 % (9.0-15.0); WHITE BLOOD COUNT (AUTO) 7.6 K/uL (4.8-10.8)
[2018-11-03 06:52] LABS: ANION GAP 7 (5-15); CALCIUM 8.8 mg/dL (8.4-11.0); CHLORIDE 102 mmol/L (98-107); CREATININE 3.87 mg/dL (0.55-1.30); GLUCOSE 161 mg/dL (70-99); POTASSIUM 4.2 mmol/L (3.5-5.1); SODIUM SERUM 140 mmol/L (136-145); UREA NITROGEN, BLOOD 35 mg/dL (8-21)
--- NOTE | 2018-11-03 07:15 | NUR ---
received report from Florencia GUZMAN. patient alert awake x 1. confused. lungs bilaterally with crackles and has non productive cough noted. vital signs stable. afebrile. Oxygen saturation 94% on 3liter on oximizer bilateral arms with scattered discolored bruises noted. has av shunt on the left upper arm palpable thrill and bruit. right wrist guage #22 and right upper arm #20 saline locked patent/dry. bed in low position, alarmed and locked. call lights within reach. maintained fall/safety precaution
[2018-11-03 07:53] VITALS: BP_SYST 153
--- NOTE | 2018-11-03 08:00 | NUR ---
vitals signs stable. afebrile.
[2018-11-03] MEDS: NEPHROVITE, (FOLIC ACID/VITAMIN B COMP W-C 1 TAB) PO SCH (08:56)
[2018-11-03] MEDS: FAMOTIDINE 20 MG TABLET PO SCH (08:56)
[2018-11-03] MEDS: ASPIRIN 81 MG TABLET(ECOTRIN) PO SCH (08:56)
[2018-11-03] MEDS: CALCIUM ACETATE 667 MG CAP PO SCH ×2 (08:56→11:25)
[2018-11-03] MEDS: AMIODARONE HCL 200 MG TABLET PO SCH ×2 (08:57→09:41)
[2018-11-03] MEDS: APIXABAN 2.5 MG TABLET PO SCH (08:58)
[2018-11-03] MEDS: ATORVASTATIN 20 MG TABLET PO SCH (09:00)
--- NOTE | 2018-11-03 09:00 | NUR ---
SHARAD GUZMAN CHARGE CALLED DR ELENA FOR DISCHARGE ORDER, SO THAT CAN ARRANGED FOR TRANSPORTATION GOING HOME WITH HOME HEALTH, ARRANGED BY MARY ANNE METAL CUTTER AT [facility].
--- NOTE | 2018-11-03 09:20 | NUR ---
due medication given with apple sauce.
[2018-11-03] MEDS ORDERED: AMIO100T4 PO (09:25)
[2018-11-03] MEDS ORDERED: AMOX250C PO (09:26)
[2018-11-03] MEDS: BALSAM PERU/CASTOR OIL 60 GM OINT...G. TP SCH (09:44)
--- NOTE | 2018-11-03 10:00 | NUR ---
AMIODARONE 100 MG PO CRUSHED GIVEN WITH APPLE SAUCE.
[2018-11-03 10:14] VITALS: BP_SYST 150
--- NOTE | 2018-11-03 11:29 | NUR ---
latest bs 184mg/dl. no coverage given at this time. hob elevated
[2018-11-03] MEDS: IPRATROPIUM/ALBUTEROL SULFATE 3 ML AMPUL.NEB (DUONEB) INH PRN (11:58)
--- NOTE | 2018-11-03 12:40 | NUR ---
came and discharged instruction given to the patient. 2 two prescription given to the patients. one for suction machine and other one for Amoxicillin tablet and probiotic tablet indication, uses, dose and frequency. discharged instruction given to the and signed the discharge summary. made aware of [facility] follow up at home. and verbalized will picker / packer the patient between 1300pm to 1400pm.
--- NOTE | 2018-11-03 14:00 | NUR ---
[facility] I D BAND AND IV ACCESS REMOVED X 2.
--- NOTE | 2018-11-03 14:00 | NUR ---
VITALS SIGNS STABLE. AFEBRILE ON ROOM AIR OXYGEN SATURATION IS 99% NO SOB NOTED.
--- NOTE | 2018-11-03 14:10 | NUR ---
PATIENT LEFT WITH THE WHEELCHAIR BUSINESS LAWYER BY [employer] ACCOMPANIED BY THE . BUSINESS LAWYER IN STABLE CONDITION. DISCHARGED INSTRUCTION GIVEN TO THE .
--- NOTE | 2018-11-03 16:59 | NUR ---
i did faxed the discharge summary to [facility] FAXED NUMBER [phone] AND PHONE NUMBER [phone]
--- NOTE | 2018-11-03 17:28 | NUR ---
FAXED DISCHARGE SUMMARY TO [facility] FOR SUCTION MACHINE BUT NO RESPONSE X 2. FAXED NUMBER [phone] AND PHONE NUMBER [phone]
--- NOTE | 2018-11-03 17:34 | NUR ---
PHYSICAL THERAPY CO-SIGN The Physical Therapy Progress Notes documented by Research Psychologist have been reviewed. Reviewed/Co-Signed by: Linda Sr PT Documentation Done by:DANIAL BELL CARPET FINISHING SUPERVISOR POC REVIEWED W/ CARPET FINISHING SUPERVISOR; HD; 11/03/18 Hgb=11.5; WILL BENEFIT W/ P.T. POST ACUTE STAY. Addendum: 11/03/18 at 1734 by Linda Sr PT Amended: Links added.
--- NOTE | 2018-11-03 17:58 | NUR ---
CALLED FRITZ AT [facility]. REGARDING THE FAXED THE DISCHARGE SUMMARY OF THIS PATIENT WITH NEW FAXED NUMBER FOR [facility] [phone]. STILL NO RESPONSE AT ALL.
== END 2018-11-03 14:10 | disposition home or self-care (01) | DRG 70 ==
LOC: SED 21:27 → STU 10-30 00:09
PROVIDERS: ADMIT Internal Medicine; ATTEND Internal Medicine
PROC: 5A1D70Z Performance of Urinary Filtration, Intermittent, Less than 6 Hours Per Day (ICD-10-PCS; principal; 2018-10-30)
PROC: 5A1D70Z Performance of Urinary Filtration, Intermittent, Less than 6 Hours Per Day (ICD-10-PCS; 2018-10-31)
PROC: 5A1D70Z Performance of Urinary Filtration, Intermittent, Less than 6 Hours Per Day (ICD-10-PCS; 2018-11-02)
DX: G93.41 Metabolic encephalopathy (principal); N18.6 End stage renal disease; E43 Unspecified severe protein-calorie malnutrition; I50.43 Acute on chronic combined systolic (congestive) and diastolic (congestive) heart failure; J96.01 Acute respiratory failure with hypoxia; I13.2 Hypertensive heart and chronic kidney disease with heart failure and with stage 5 chronic kidney disease, or end stage renal disease; N39.0 Urinary tract infection, site not specified; Z68.1 Body mass index [BMI] 19.9 or less, adult; E11.22 Type 2 diabetes mellitus with diabetic chronic kidney disease; E78.5 Hyperlipidemia, unspecified; I27.20 Pulmonary hypertension, unspecified; I48.0 Paroxysmal atrial fibrillation; E87.70 Fluid overload, unspecified; F03.90 Unspecified dementia, unspecified severity, without behavioral disturbance, psychotic disturbance, mood disturbance, and anxiety; L89.159 Pressure ulcer of sacral region, unspecified stage; Z79.01 Long term (current) use of anticoagulants; Z85.038 Personal history of other malignant neoplasm of large intestine; Z99.2 Dependence on renal dialysis; Z79.899 Other long term (current) drug therapy; Z79.82 Long term (current) use of aspirin; Z95.1 Presence of aortocoronary bypass graft
CPT/HCPCS: 36415; 36600; 71045; 80048; 80053; 80061; 81000-TC; 82550-TC; 82803-TC; 82962; 83605; 83874; 83880; 84100-TC; 84443-TC; 84484; 85025; 85379; 85730-TC; 87040-TC; 87045-TC; 87046; 87081; 87086; 87186-TC; 89055; 90935; 90937; 93005; 94640; 94760; 96374; 97110-GP; 97530-GP; 99285; G0378; J0696; J1815; J1940; J2930; J7030; J7620